=== PATIENT | female | born 1965 | race Caucasian/White ===

== ENCOUNTER 2017-08-22 15:43 | Observation (INO) | payer OTHER ==
[2017-08-22] MEDS ORDERED: ASPIRIN 81 MG PO STA (16:17)
[2017-08-22] MEDS ORDERED: NITROGLYCERIN OINT 1 INCH/GM PACKET TOPICAL STA (16:17)
--- NOTE | 2017-08-22 16:20 | ED ---
General Adult HPI - General Chief complaint: Chest Pain Stated complaint: [facility] sent/ EKG Time Seen by Provider: 08/22/17 16:00 Source: patient, RN notes reviewed Mode of arrival: ambulatory Limitations: no limitations - History of Present Illness Initial comments: This is a 52-year-old female presents emergency Department because she had a five-minute episode last evening of chest pain. Patient states while she had she did have some shortness of breath and some radiation of the pain to the left arm which felt like a heaviness. Patient also states she was having some nausea with the chest pain. Patient denies any recent fever chills or cough. Patient denies headache patient denies numbness weakness. Patient denies any abdominal pain. Patient denies vomiting diarrhea. Patient denies any recent fever chills or cough. Patient states the pain resolved but all night long her left arm felt achy. Patient states currently she is asymptomatic. - Related Data Home Medications Medication Instructions Recorded Confirmed Amoxic-Pot Clav 875-125Mg 1 tab PO Q12HR 08/22/17 08/22/17 [Augmentin 875-125] Allergies Allergy/AdvReac Type Severity Reaction Status Date / Time No Known Allergies Allergy Verified 08/22/17 16:19 Review of Systems ROS Statement: Those systems with pertinent positive or pertinent negative responses have been documented in the HPI. ROS Other: All systems not noted in ROS Statement are negative. Past Medical History Past Medical History: No Reported History History of Any Multi-Drug Resistant Organisms: None Reported Past Surgical History: Hysterectomy Past Psychological History: No Psychological Hx Reported Smoking Status: Former smoker Past Alcohol Use History: None Reported Past Drug Use History: None Reported General Exam - General Exam Comments Initial Comments: GENERAL: Patient is well-developed and well-nourished. Patient is nontoxic and well- hydrated and is in no acute distress ENT: Neck is soft and supple. No significant lymphadenopathy is noted. Oropharynx is clear. Moist mucous membranes. Neck has full range of motion without eliciting any pain. EYES: The sclera were anicteric and conjunctiva were pink and moist. Extraocular movements were intact and pupils were equal round and reactive to light. Eyelids were unremarkable. PULMONARY: Unlabored respirations. Good breath sounds bilaterally. No audible rales rhonchi or wheezing was noted. CARDIOVASCULAR: There is a regular rate and rhythm without any murmurs gallops or rubs. ABDOMEN: Soft and nontender with normal bowel sounds. No palpable organomegaly was noted. There is no palpable pulsatile mass. SKIN: Skin is clear with no lesions or rashes and otherwise unremarkable. NEUROLOGIC: Patient is alert and oriented x3. Cranial nerves II through XII are grossly intact. Motor and sensory are also intact. Normal speech, volume and content. Symmetrical smile. MUSCULOSKELETAL: Normal extremities with adequate strength and full range of motion. No lower extremity swelling or edema. No calf tenderness. LYMPHATICS: No significant lymphadenopathy is noted PSYCHIATRIC: Normal psychiatric evaluation. Normal interpersonal interactions appears functionally intact in deals appropriately with others. No signs of depression. No signs of anxiety. Limitations: no limitations Course Vital Signs 08/22/17 08/22/17 15:59 17:04 Temperature 98.1 F Pulse Rate 70 71 Respiratory 20 16 Rate Blood Pressure 124/87 143/90 O2 Sat by Pulse 98 98 Oximetry Medical Decision Making - Medical Decision Making EKG shows normal sinus rhythm at 70 bpm CA interval is 134 QRS is 72 QT interval 38 QTC is 419. Patient's EKG shows no ST segment elevation or depression or T wave abnormalities are noted. Chest x-ray shows no acute abnormality. I went back in to the room to reevaluate the patient she no longer had any chest pressure but she was still experiencing some left arm heaviness minute the patient to Dr. Real he agreed to accept the admission I wrote admitting orders consult cardiology - Lab Data Result diagrams: 08/22/17 16:24 08/22/17 16:24 Lab Results 08/22/17 08/22/17 08/22/17 Range/Units 16:24 16:24 16:24 WBC 5.7 (3.8-10.6) k/uL RBC 4.49 (3.80-5.40) m/uL Hgb 13.8 (11.4-16.0) gm/dL Hct 42.0 (34.0-46.0) % MCV 93.7 (80.0-100.0) fL MCH 30.8 (25.0-35.0) pg MCHC 32.9 (31.0-37.0) g/dL RDW 12.7 (11.5-15.5) % Plt Count 222 (150-450) k/uL Neutrophils % 49 % Lymphocytes % 43 % Monocytes % 4 % Eosinophils % 2 % Basophils % 0 % Neutrophils # 2.8 (1.3-7.7) k/uL Lymphocytes # 2.5 (1.0-4.8) k/uL Monocytes # 0.2 (0-1.0) k/uL Eosinophils # 0.1 (0-0.7) k/uL Basophils # 0.0 (0-0.2) k/uL PT (9.0-12.0) sec INR (<1.2) APTT (22.0-30.0) sec Sodium 142 (137-145) mmol/L Potassium 4.4 (3.5-5.1) mmol/L Chloride 106 (98-107) mmol/L Carbon Dioxide 25 (22-30) mmol/L Anion Gap 11 mmol/L BUN 14 (7-17) mg/dL Creatinine 0.75 (0.52-1.04) mg/dL Est GFR (MDRD) Af Amer >60 (>60 ml/min/1.73 sqM) Est GFR (MDRD) Non-Af >60 (>60 ml/min/1.73 sqM) Glucose 84 (74-99) mg/dL Calcium 9.7 (8.4-10.2) mg/dL Magnesium 2.0 (1.6-2.3) mg/dL Total Bilirubin 0.6 (0.2-1.3) mg/dL AST 36 (14-36) U/L ALT 35 (9-52) U/L Alkaline Phosphatase 63 (38-126) U/L Total Creatine Kinase 74 (30-135) U/L CK-MB (CK-2) 0.5 (0.0-2.4) ng/mL CK-MB (CK-2) Rel Index 0.7 Troponin I <0.012 (0.000-0.034) ng/mL Total Protein 8.3 H (6.3-8.2) g/dL Albumin 4.8 (3.5-5.0) g/dL 08/22/17 Range/Units 16:24 WBC (3.8-10.6) k/uL RBC (3.80-5.40) m/uL Hgb (11.4-16.0) gm/dL Hct (34.0-46.0) % MCV (80.0-100.0) fL MCH (25.0-35.0) pg MCHC (31.0-37.0) g/dL RDW (11.5-15.5) % Plt Count (150-450) k/uL Neutrophils % % Lymphocytes % % Monocytes % % Eosinophils % % Basophils % % Neutrophils # (1.3-7.7) k/uL Lymphocytes # (1.0-4.8) k/uL Monocytes # (0-1.0) k/uL Eosinophils # (0-0.7) k/uL Basophils # (0-0.2) k/uL PT 9.9 (9.0-12.0) sec INR 1.0 (<1.2) APTT 23.5 (22.0-30.0) sec Sodium (137-145) mmol/L Potassium (3.5-5.1) mmol/L Chloride (98-107) mmol/L Carbon Dioxide (22-30) mmol/L Anion Gap mmol/L BUN (7-17) mg/dL Creatinine (0.52-1.04) mg/dL Est GFR (MDRD) Af Amer (>60 ml/min/1.73 sqM) Est GFR (MDRD) Non-Af (>60 ml/min/1.73 sqM) Glucose (74-99) mg/dL Calcium (8.4-10.2) mg/dL Magnesium (1.6-2.3) mg/dL Total Bilirubin (0.2-1.3) mg/dL AST (14-36) U/L ALT (9-52) U/L Alkaline Phosphatase (38-126) U/L Total Creatine Kinase (30-135) U/L CK-MB (CK-2) (0.0-2.4) ng/mL CK-MB (CK-2) Rel Index Troponin I (0.000-0.034) ng/mL Total Protein (6.3-8.2) g/dL Albumin (3.5-5.0) g/dL Disposition Clinical Impression: Chest pain Disposition: ADMITTED IP TO THIS [facility] Referrals: None,Stated [Primary Care Provider] - 1-2 days Time of Disposition: 17:42
[2017-08-22 16:36] LABS: Basophils % (A) 0 %; CH 31.7; Eosinophils # (A) 0.1 k/uL (0-0.7); Eosinophils % (A) 2 %; HDW 2.65; HGB 13.8 gm/dL (11.4-16.0); Luc # (Auto) 0.09; Luc % (Auto) 2; Lymphocytes # (A) 2.5 k/uL (1.0-4.8); Lymphocytes % (A) 43 %; MCH 30.8 pg (25.0-35.0); MCHC 32.9 g/dL (31.0-37.0); MCV 93.7 fL (80.0-100.0); Mean Platelet Volume 7.1; Monocytes # (A) 0.2 k/uL (0-1.0); Monocytes % (A) 4 %; Neutrophils # (A) 2.8 k/uL (1.3-7.7); Neutrophils % (A) 49 %; RBC 4.49 m/uL (3.80-5.40); RDW 12.7 % (11.5-15.5); WBC 5.7 k/uL (3.8-10.6); WBC (Perox) 5.26
[2017-08-22 16:46] LABS: Partial Thromboplastin Time 23.5 sec (22.0-30.0); Prothrombin Time 9.9 sec (9.0-12.0)
[2017-08-22 16:54] LABS: ALT 35 U/L (9-52); AST 36 U/L (14-36); Alkaline Phosphatase 63 U/L (38-126); Anion Gap 11 mmol/L; Blood Urea Nitrogen 14 mg/dL (7-17); Calcium 9.7 mg/dL (8.4-10.2); Carbon Dioxide 25 mmol/L (22-30); Chloride 106 mmol/L (98-107); Creatine Kinase 74 U/L (30-135); Glucose 84 mg/dL (74-99); Non-African American GFR(MDRD) >60 (>60 ml/min/1.73 sqM); Potassium 4.4 mmol/L (3.5-5.1); Sodium 142 mmol/L (137-145); Total Bilirubin 0.6 mg/dL (0.2-1.3); Total Protein 8.3 g/dL (6.3-8.2)
--- NOTE | 2017-08-22 17:02 | XR ---
EXAMINATION TYPE: XR chest 2V DATE OF EXAM: 08/22/2017 COMPARISON: NONE HISTORY: Chest pain TECHNIQUE: Frontal and lateral views of the chest are obtained. FINDINGS: Heart and mediastinum are normal. Lungs are clear. Diaphragm is normal. Bony thorax appear s normal. There are chest leads. IMPRESSION: Normal chest
[2017-08-22 17:06] LABS: Creatine Kinase MB 0.5 ng/mL (0.0-2.4); Troponin I <0.012 ng/mL (0.000-0.034)
[2017-08-22] MEDS ORDERED: NITROGLYCERIN SL TABS 0.4 MG TAB SUBLINGUAL PRN (17:43)
--- NOTE | 2017-08-22 19:02 | HP ---
HISTORY AND PHYSICAL CHIEF COMPLAINT: 52-year-old, white female, with 5 minute history of chest pain 24 hours ago. She had some shortness of breath, radiation of the pain to the left arm, felt like heaviness, some nausea, denied fever or chills or cough and weakness or abdominal pain. No vomiting or diarrhea. States only along her left arm felt achy. Currently in the ER she was asymptomatic. ALLERGIES: Negative. MEDICATIONS: Home medications are negative except she was on antibiotic for recent cold. REVIEW OF SYSTEM: 14 point review of systems negative except for mentioned in HPI. PAST SURGICAL HISTORY: She has had a hysterectomy. SOCIAL HISTORY: Former smoker. No alcohol. No illicit drugs. PHYSICAL EXAM: Vital signs are reviewed. She is well nourished in no acute distress. NECK: Supple. Ophthalmologic: Pupils equal, round, reactive to light. LUNGS: Unlabored, clear. CARDIOVASCULAR: Regular rate and rhythm. ABDOMEN: Soft, nontender. Skin: No rash, lesions or excoriations. Neurologic: Cranial nerves are intact. She has full strength in all 4 extremities. No lymphadenopathy. Normal psych eval. Pulse 70s, respiration 18-20, temp 98, blood pressure 120s to 140s over 80s to 90s. O2 98% on room air. LABORATORY DATA: Chest x-ray was negative. The thyroid and BNP are pending. Labs essentially normal. ASSESSMENT: Atypical chest pain, due to multiple cardiac type symptoms radiating to the left arm and nausea. She will be admitted, rule out myocardial infarction. Cardiology will be consulted. Possible discharge after Cardiology clears her tomorrow. MMODL / IJN: [id number] /
[2017-08-22 22:42] LABS: Creatine Kinase 64 U/L (30-135)
[2017-08-22 22:57] LABS: Creatine Kinase MB 0.5 ng/mL (0.0-2.4); Troponin I <0.012 ng/mL (0.000-0.034)
[2017-08-23 06:04] LABS: Cholesterol 205 mg/dL (<200); HDL Cholesterol 47 mg/dL (40-60)
[2017-08-23 06:08] LABS: Creatine Kinase 61 U/L (30-135)
[2017-08-23 06:21] LABS: Creatine Kinase MB 0.4 ng/mL (0.0-2.4); Troponin I <0.012 ng/mL (0.000-0.034)
[2017-08-23] MEDS: NITROGLYCERIN OINT 1 INCH/GM PACKET TOPICAL SCH ×2 (06:57→15:54)
[2017-08-23] MEDS ORDERED: ASPIRIN 325 MG TAB PO SCH (09:00)
[2017-08-23 10:15] VITALS: BMI 34.7
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
--- NOTE | 2017-08-23 13:06 | ECHOF ---
Referral Reason:chest pain MEASUREMENTS -------- HEIGHT: 157.5 cm WEIGHT: 86.2 kg BP: 165/85 IVSd: 1.1 cm (0.6 - 1.1) LVIDd: 4.8 cm (3.9 - 5.3) LVPWd: 0.9 cm (0.6 - 1.1) IVSs: 1.4 cm LVIDs: 3.4 cm LVPWs: 1.1 cm LA Diam: 3.2 cm (2.7 - 3.8) LAESV Index (A-L): 20.43 ml/m Ao Diam: 2.8 cm (2.0 - 3.7) AV Cusp: 2.0 cm (1.5 - 2.6) LA Diam: 3.1 cm (2.7 - 3.8) MV EXCURSION: 17.354 mm (> 18.000) MV EF SLOPE: 68 mm/s (70 - 150) EPSS: 0.5 cm MV E Robert: 0.52 m/s MV DecT: 241 ms MV A Robert: 0.58 m/s MV E/A Ratio: 0.90 RAP: 5.00 mmHg RVSP: 23.28 mmHg FINDINGS -------- Sinus rhythm. This was a technically adequate study. The left ventricular size is normal. Left ventricular wall thickness is normal. Overall left ventricular systolic function is normal with, an EF between 55 - 60 %. The right ventricle is normal in size. Normal LA size by volume 22+/-6 ml/m2. The right atrial size is normal. The aortic valve is trileaflet, and appears structurally normal. No aortic stenosis or regurgitation. Mild mitral regurgitation is present. Mild tricuspid regurgitation present. There is no evidence of pulmonary hypertension. The right ventricular systolic pressure, as measured by Doppler, is 23.28mmHg. There is no pulmonic regurgitation present. The aortic root size is normal. There is no pericardial effusion. CONCLUSIONS -------- 1. The left ventricular size is normal. 2. The aortic root size is normal. 3. There is no pericardial effusion. 4. Left ventricular wall thickness is normal. 5. Overall left ventricular systolic function is normal with, an EF between 55 - 60 %. 6. The aortic valve is trileaflet, and appears structurally normal. No aortic stenosis or regurgitation. 7. Mild mitral regurgitation is present. 8. Mild tricuspid regurgitation present. 9. There is no evidence of pulmonary hypertension. 10. The right ventricular systolic pressure, as measured by Doppler, is 23.28mmHg. 11. There is no pulmonic regurgitation present. CURB WORKER: Valencia Donahue RDCS
--- NOTE | 2017-08-23 14:21 | ECHOS ---
STRESS ECHOCARDIOGRAM DATE OF SERVICE: 08/23/2017 INDICATIONS: Chest pain. MEDICATIONS:: Augmentin BASELINE HEART RATE: 86 BASELINE BLOOD PRESSURE: 140/100 MAXIMUM HEART RATE: 174 MAXIMUM BLOOD PRESSURE: 190/108 85% MPHR: 145 100% MPHR: 170 METS: 7.7 MAXIMUM STAGE REACHED: II TOTAL EXERCISE TIME: 6:31 CLINICAL INFORMATION: Pretesting physical examination showed a heart rate of 86, pressure of 140/100 mmHg. Baseline EKG shows sinus mechanism. The patient exercised on the treadmill according to Huang protocol for a total of 6 minutes and 31 seconds and achieved 8 of METs. Max heart rate was 174, which is about 100% of maximum predicted heart rate. Maximum blood pressure was 190/100 mmHg. Clinically, the patient did not have any symptoms of chest pain or discomfort and the EKG showed about 0.[address]-segment changes. On echocardiogram images from parasternal long axis view, parasternal short axis view, apical 4 chamber view, and the apical 2 chamber view were obtained as the baseline images, at peak heart rate, as well as on recovery. The echocardiogram images did not show any obvious wall motion abnormalities consistent with ischemia. CONCLUSION: 1. Mild EKG changes and response to exercise did not meet the criteria for ischemia. 2. Normal echocardiogram in response to exercise. MMODL / IJN: [id number] /
[2017-08-23 15:48] VITALS: BP 143/85; PULSE 71; RESP 18; TEMP 97.7
== END 2017-08-23 18:02 | disposition home or self-care (01) ==
LOC: EC 15:43 → 3OBS 17:43
PROVIDERS: ADMIT Family Medicine; ATTEND Family Medicine
DX: R07.89 Other chest pain (principal); R11.0 Nausea; R06.02 Shortness of breath; M19.90 Unspecified osteoarthritis, unspecified site; F32.9 Major depressive disorder, single episode, unspecified; Z87.891 Personal history of nicotine dependence; Z87.820 Personal history of traumatic brain injury
CPT/HCPCS: 99285 ×2; 36415; 93005; 93017; 93306; 93350; 85379; 80061; 80053; 84443; 82550 ×2; 82553 ×2; 83735; 84484 ×2; 85025; 85610; 85730; 71020; G0378 ×2

== ENCOUNTER → 2017-12-07 | Outpatient (CLI) | payer OTHER ==
--- NOTE | 2017-12-07 13:26 | US ---
EXAMINATION TYPE: US abdomen complete DATE OF EXAM: 12/07/2017 COMPARISON: NONE CLINICAL HISTORY: R10.9 Intermittent Abdominal Pain. epigastric pain EXAM MEASUREMENTS: Liver Length: 12.9 cm Gallbladder Wall: 0.2 cm CBD: 0.5 cm Spleen: 10.4 cm Right Kidney: 9.9 x 3.9 x 5.4 cm Left Kidney: 10.7 x 4.7 x 5.4 cm Pancreas: not well visualized due to midline bowel gas Liver: difficult to penetrate, somewhat coarse echotexture. Gallbladder: No stones seen Evidence for sonographic Betancourt's sign: No CBD: wnl Spleen: wnl Right Kidney: limited vis due to bowel gas Left Kidney: limited vis due to bowel gas Upper IVC: wnl Abd Aorta: wnl IMPRESSION: 1. Limited examination due to bowel gas. 2. Mild fatty infiltration of the liver.
--- NOTE | 2017-12-07 13:27 | US ---
EXAMINATION TYPE: US pelvis complete transvag DATE OF EXAM: 12/07/2017 COMPARISON: US CLINICAL HISTORY: R10.9 Intermittent Abdominal Pain/R10.2 PELVIC PAIN. TECHNIQUE: Transvaginal (TV) and Transabdominal (TA) Date of LMP: hysterectomy 2010 per patient and prior US EXAM MEASUREMENTS: Uterus: Surgically absent cm Endometrial Stripe: Surgically absent cm Right Ovary: not visualized due to bowel gas Left Ovary: 2.2 x 0.9 x 2.8 cm Appears as if patient still has cervix. 1. Uterus: Surgically absent 2. Endometrium: Surgically absent 3. Right Ovary: not visualized 4. Left Ovary: wnl 5. Bilateral Adnexa: wnl 6. Posterior cul-de-sac: wnl IMPRESSION: 1. Postsurgical changes. 2. No acute pelvic abnormality.
--- NOTE | 2017-12-10 08:17 | MM ---
Reason for exam: clinical finding. Last mammogram was performed 3 years and 2 months ago. Physical Findings: Nurse Summary: 1.5cm nodule in the right breast at 11 o'clock (nurse sunil). MG Diagnostic Mammo w CAD CHANDRA Bilateral CC and MLO view(s) were taken. Prior study comparison: September 21, 2014, bilateral MG screening mammo w CAD. December 14, 2009, mammogram, performed at [facility]. The breast tissue is almost entirely fat. No significant new findings when compared with previous films. These results were verbally communicated with the patient and result sheet given to the patient on 12/07/17. ASSESSMENT: Negative, BI-RAD 1 RECOMMENDATION: Routine screening mammogram of both breasts in 1 year. Manage on a clinical basis with regard to right palpable.
--- NOTE | 2017-12-10 08:18 | USB ---
Reason for exam: clinical finding. US Breast RT Right breast ultrasound includes all four quadrants, the retroareolar region and axilla. Finding demonstrates no cystic or solid lesion seen. These results were verbally communicated with the patient and result sheet given to the patient on 12/07/17. ASSESSMENT: Negative, BI-RAD 1 RECOMMENDATION: Routine screening mammogram of both breasts in 1 year. Manage on a clinical basis with regard to right palpable abnormality.
== END | disposition home or self-care (01) ==
LOC: RADUSWWP 12:14
PROVIDERS: ATTEND Family Medicine
DX: K76.0 Fatty (change of) liver, not elsewhere classified (principal); R10.2 Pelvic and perineal pain; N63.10 Unspecified lump in the right breast, unspecified quadrant; Z98.890 Other specified postprocedural states
CPT/HCPCS: 76700; 76830; 76856; 77066

== ENCOUNTER 2017-12-25 21:05 | Emergency (ER) | payer OTHER ==
[2017-12-25 21:10] VITALS: BP 145/88; PULSE 94; RESP 20; TEMP 98.6
--- NOTE | 2017-12-25 21:42 | XR ---
EXAMINATION TYPE: XR chest 2V DATE OF EXAM: 12/25/2017 COMPARISON: 08/22/2017 HISTORY: Chest pain TECHNIQUE: Frontal and lateral views of the chest are obtained. FINDINGS: Heart and mediastinum are normal. Lungs are clear of infiltrate. Costophrenic angles are c lear. Bony thorax is intact. IMPRESSION: No active cardiopulmonary disease. No change.
[2017-12-25] MEDS ORDERED: predniSONE 20 MG TAB PO STA (21:58)
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
== END 2017-12-25 22:11 | disposition home or self-care (01) ==
LOC: EC 21:05
DX: J20.8 Acute bronchitis due to other specified organisms (principal); Z87.891 Personal history of nicotine dependence
CPT/HCPCS: 71046; 99283; J7512

== ENCOUNTER → 2021-10-15 | Outpatient (CLI) | payer OTHER ==
--- NOTE | 2021-10-15 13:31 | XR ---
Left fourth toe. HISTORY: Pain following trauma. COMPARISON: None. TECHNIQUE: 3 views of the left fourth toe were obtained. FINDINGS: There is a mildly displaced acute spiral fracture of the proximal phalanx of the left fourth toe. Sepulveda s not appear to involve the articular surfaces. There is no radiopaque foreign body. IMPRESSION: Fracture of the left fourth toe as described above.
== END | disposition home or self-care (01) ==
LOC: RADXRMAIN 12:51
PROVIDERS: ATTEND Family Medicine
DX: S92.512A Displaced fracture of proximal phalanx of left lesser toe(s), initial encounter for closed fracture (principal)

== ENCOUNTER → 2022-06-01 | Outpatient (CLI) | payer OTHER ==
--- NOTE | 2022-06-01 15:07 | XR ---
EXAMINATION TYPE: XR lumbar spine 2 or 3V DATE OF EXAM: 06/01/2022 CLINICAL HISTORY: pain TECHNIQUE: Frontal, lateral, and coned and L5-S1 views of the lumbar spine. COMPARISON: None. FINDINGS: There are 5 lumbar type vertebral bodies identified. The lumbar spine shows satisfactory alignment w ithout evidence of acute fracture or dislocation. Vertebral body heights are within normal limits. Disc spaces are mildly narrowed with endplate sclerosis and anterior asbestosis. This is most promine nt at L5-S1 and L2-L3. Multilevel facet arthropathy. The overlying soft tissue appears unremarkable. IMPRESSION: * No acute fracture seen in the lumbar spine. * Mild degenerative disc disease.
== END | disposition home or self-care (01) ==
LOC: RADXRMAIN 14:36
PROVIDERS: ATTEND Family Medicine
DX: M51.26 Other intervertebral disc displacement, lumbar region (principal); R93.7 Abnormal findings on diagnostic imaging of other parts of musculoskeletal system
CPT/HCPCS: 72100

== ENCOUNTER → 2022-06-10 | Outpatient (CLI) | payer OTHER ==
--- NOTE | 2022-06-11 04:03 | MR ---
EXAMINATION TYPE: MR lumbar spine wo con DATE OF EXAM: 06/10/2022 COMPARISON: March 30, 2014 HISTORY: Lower back pain in the center and right side. Multiplanar multiecho imaging of the lumbar spine with no contrast. The lumbar vertebra have normal alignment. There is degenerative disc space narrowing at L2-3 and L3- 4. There is posterior disc herniations at L2-3 and L3-4 into the spinal canal. No significant spinal stenosis. There is no lumbar paraspinal mass. No compression fracture. Posterior elements are intact. There is left-sided narrowing of the L3-4 and L4-5 neural foramina due to disc space narrowing and f acet arthropathy. There is mild narrowing of the right-sided L4-5 neural foramen. IMPRESSION: Posterior disc herniations at L2-3 and L3-4. Disc herniation at L3-4 appears new compared to old exam . No change at L2-3.. No significant spinal stenosis.
== END | disposition home or self-care (01) ==
LOC: RADMRIMAIN 09:54
PROVIDERS: ATTEND Family Medicine
DX: M51.26 Other intervertebral disc displacement, lumbar region (principal)
CPT/HCPCS: 72148

== ENCOUNTER → 2023-08-02 | Outpatient (CLI) | payer OTHER ==
--- NOTE | 2023-08-02 15:58 | XR ---
EXAMINATION TYPE: XR sacroiliac joint comp BILAT DATE OF EXAM: 08/02/2023 COMPARISON: Lumbar spine 06/01/2022 HISTORY: 58-year-old female M79.18 MYALGIA, OTHER SITE TECHNIQUE: 3 views FINDINGS: SI joints appear symmetric and intact. Possible mild degenerative spurring on the right but no subarticular erosions. Suspected transitional lumbosacral segment with a lumbarized S1. Suboptima l delineation to the arcuate lines of the sacrum. IMPRESSION: 1. Suggestion of mild degenerative change of the right SI joint. 2. Transitional lumbosacral segment is noted as a lumbarized S1.
== END | disposition home or self-care (01) ==
LOC: RADXRMAIN 11:19
PROVIDERS: ATTEND Internal Medicine
DX: M79.18 Myalgia, other site (principal)
CPT/HCPCS: 72202

== ENCOUNTER → 2023-09-22 | Outpatient (CLI) | payer OTHER ==
--- NOTE | 2023-09-26 09:31 | MR ---
EXAMINATION TYPE: MR lumbar spine wo con DATE OF EXAM: 09/22/2023 COMPARISON: 06/10/2022 HISTORY: Low back pain that radiates into left buttocks. TECHNIQUE: Multiplanar, multisequence images of the lumbar spine were acquired without IV contrast. L1-L2: Normal disc appearance without desiccation. No herniation, protrusion or disc bulging. No ca nal stenosis is present. Foramina are patent bilaterally. L2-L3: Severe disc desiccation with subligamentous disc herniation. Mild effacement ventral thecal sa c. No evidence for central stenosis. There is evidence of left lateral recess stenosis and left heremlinda inal encroachment. Overall appearance is stable relative to the prior study. L3-L4: Severe disc desiccation with subligamentous herniation posterocentral into the right measuring 5 mm in AP dimension. There is constriction of the thecal sac with borderline central stenosis. Ther e is right lateral recess stenosis and right foraminal encroachment unchanged from prior study. L4-L5: Moderate disc desiccation with posterocentral disc bulge. Mild effacement ventral thecal sac. Right lateral recess stenosis and right foraminal encroachment. L5-S1: Normal disc appearance without desiccation. No herniation, protrusion or disc bulging. No ca nal stenosis is present. Foramina are patent bilaterally. Lumbar segments are intact. No paraspinal masses are identified. Conus medullaris has a normal appe arance. IMPRESSION: 1. Stable examination with disc desiccation as well as disc herniation at L3-4 and to a lesser extent L2-3. Varying degrees of lateral recess stenosis and foraminal encroachment as outlined above.
== END | disposition home or self-care (01) ==
LOC: RADMRIMAIN 09:06
PROVIDERS: ATTEND Orthopaedic Surgery
DX: M51.16 Intervertebral disc disorders with radiculopathy, lumbar region (principal); M48.061 Spinal stenosis, lumbar region without neurogenic claudication
CPT/HCPCS: 72148

== ENCOUNTER → 2023-10-26 | Outpatient (CLI) | payer OTHER ==
--- NOTE | 2023-10-26 16:30 | CT ---
EXAMINATION TYPE: CT lumbar spine wo con DATE OF EXAM: 10/26/2023 3:26 PM COMPARISON: None HISTORY: chronic lower back and leg pain. CT DLP: 1034.1 mGycm Automated exposure control for dose reduction was used. Unenhanced CT of the lumbar spine was performed. Bone and soft tissue window settings are submitted as well as coronal and sagittal reconstructions. Findings: The lumbar vertebral segments are normal in height and alignment and there is no fracture subluxation . There is moderate to marked disc space narrowing with vacuum phenomena and spondylosis at the L2-3 and L3-4 levels consistent with moderate to marked degenerative disc disease. The L1-2, L4-5 and L5-S 1 discs are well-maintained in height There is a broad-based disc protrusion at the L4-5 disc to the right of midline compromising the righ t lateral recess. On the MRI dated 09/22/2023 a central disc protrusion/herniation is identified at t he L3-4 level which is not well appreciated on the current study. Secondary to disc bulge, facet hypertrophy and thickening ligamentum flavum, there is probable mild s carlene stenosis at the L2-3, L3-4 and L4-5 levels.. There is mild facet arthropathy in the mid and lower lumbar spine. The visualized sacrum and SI joint s are normal. The paraspinal soft tissues are unremarkable. IMPRESSION: 1. Moderate to marked degenerative disease at the L2-3 and L3-4 levels. 2. Broad-based disc protrusion the L4-5 disc on the right compromising the right lateral recess. 3. Mild spinal stenosis suspected at the L2-3, L3-4 and L4-5 levels. 4. Correlation with MRI lumbar spine findings is recommended. MRI lumbar spine 09/22/2023 also demons trated a focal disc protrusion/herniation of the L3-4 disc which is not well appreciated on the curre nt study.
== END | disposition home or self-care (01) ==
LOC: RADCTMAIN 15:10
PROVIDERS: ATTEND Orthopaedic Surgery
DX: M47.817 Spondylosis without myelopathy or radiculopathy, lumbosacral region (principal); M51.36 Other intervertebral disc degeneration, lumbar region; M51.26 Other intervertebral disc displacement, lumbar region; M48.061 Spinal stenosis, lumbar region without neurogenic claudication
CPT/HCPCS: 72131

== ENCOUNTER → 2024-02-16 | Outpatient (CLI) | payer OTHER | END | disposition home or self-care (01) | LOC: LABPAT 11:43 | PROVIDERS: ATTEND Orthopaedic Surgery | DX: Z01.812 Encounter for preprocedural laboratory examination (principal); Z22.322 Carrier or suspected carrier of Methicillin resistant Staphylococcus aureus; M47.26 Other spondylosis with radiculopathy, lumbar region; M48.061 Spinal stenosis, lumbar region without neurogenic claudication | CPT/HCPCS: 36415; 86850; 86900; 86901; 87070 ==

== ENCOUNTER 2024-02-19 08:27 | Inpatient (IN) | payer OTHER ==
--- NOTE | 2024-02-17 18:54 | P.HPOR ---
History of Present Illness H&P Date: 02/11/24 .D:Date: 02/11/24 : 03:25pm .T:Title: *[facility] [place] HISTORY AND PHYSICAL Allergies: NKDA Age: 58 year Height: 5'2" Weight: 190 lbs BMI: 34.75 kg/m2 Occupation: [employer] VAS: 2 Hand:Right IMPRESSION: It was my pleasure to have seen and examined Alyse. I reviewed the patient's clinical syndrome, physical findings, and imaging studies during the appointment today. It is my impression that the patient has a diagnosis of. 1. 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 Bilateral lower extremity radiculopathy 3. Bilateral lower extremity weakness I outlined the natural course history without intervention and various interventional options. Spine Surgery Risk Review Ms. Mata is presenting for evaluation of low back and bilateral lower extremity pain, bilateral lower extremity numbness, tingling, and weakness. It was my pleasure to have seen and examined Ms. Mata. In our visit today we have had a chance to go over subjective complaints, physical examination findings and treatments including the natural course history without intervention and various interventional options. The patients imaging demonstrates: [facility]: Images reviewed in the office with the patient. This demonstrates L2 through L3 4 severe spondylosis with disc collapse. Vacuum disc phenomenon noted. Facet arthrosis. Stenosis related to disc herniation facet arthrosis overgrowth and arthropathy. Flat normal lumbar lordosis secondary to this collapse. No acute fracture no lesions. [facility]23 of [facility]: - Re-reviewed with the patient today. 1. Stable examination with disc desiccation as well as disc herniation at L3-4 and to a lesser extent L2-3. Varying degrees of lateral recess stenosis and foraminal encroachment as outlined above. XRay Lumbar Multiview (AP, Lateral, Flexion, Extension) with AP pelvis; 5 views taken at [facility] on 09/17/23: - Re-reviewed with the patient today. Moderate multilevel spondylitic and degenerative changes with preserved alignment. Multilevel diminished disc height. Vertebral body heights are preserved. Multilevel foraminal stenosis. No acute osseous abnormalities. On physical exam, Ms. Mata demonstrates: A continued ache-like pain throughout the low back that radiates down into the bilateral lower extremities with a sharp, shooting quality. The patient states that her left lower extremity pain is much more severe than the right at this time. The patient states her lower extremity pain is associated with numbness, tingling, and weakness bilaterally. She states her symptoms worsen when sitting upon juan luis surfaces or after prolonged standing or walking. The patient reports experiencing severe sleep disturbances related to her ongoing pain and associated symptoms. I have explained to the patient that as their condition progresses it will cause further neurological deficits and eventual paralysis. Based on the patients imaging, physical exam, and the rapid progression and disabling nature of their symptoms, at this time I recommend surgery in the form of a: Stage I: L2-4 lateral interbody fusion followed by Stage II: L2-4 MIS posterior fusion. I discussed the risk and benefits of this procedure at length with Ms. Mata. The patient agreed to considered pursuing the procedure above mentioned. Prior to surgery, she should follow up with her PCP (Cardio, ID, IM etc) for clearance. Questions were invited and answered, and the patient wishes to proceed as outlined below. Currently, I am recommendin.Stage I: L2-4 lateral interbody fusion followed by Stage II: L2-4 MIS posterior fusion 2.Review of surgical risks and benefits as well as an educational packet on the proposed surgical procedure. Risks: All surgical procedures come with inherent risks, including those related to positioning, anesthesia, intraoperative findings, and postoperative complications. It is important to understand that surgery does not come with any guarantee of a successful outcome as complications and adverse events are always possible. The patient was given a handout in office today discussing the surgical procedure and risks associated with the intervention, both of which were discussed with the patient. These risks include but are not limited to the following: * Experiencing same, different or even worse symptoms in back, neck, arms, or legs compared to before surgery. Requiring further surgery or other forms of treatment presently or at some time in the future at same or other levels of the intended spine surgery. On an extreme but fortunately relatively rare basis severe complication such as blindness, stroke, heart attack, temporary and/or permanent nerve injury, paralysis, coma, or may occur, sometimes without known explanation. Surgical complications may include but are not limited to risk of infection, fluid accumulation in the surgical dissection site, including a seroma or hematoma, that requires additional surgery, wound drainage, bleeding, new numbness or weakness, vision changes/loss, spinal fluid leakage, non-healing and/or infected incision, headaches, difficulty or inability to swallow, hoarseness, hemopneumothorax, pneumothorax, impotence, retrograde ejaculation, vaginal dryness; injury to nerves, spinal cord, blood vessels, lymphatics or other vital organs (i.e., bowel injury, injury to the great vessels); heterotopic bone formation; complications related to the hardware such as screws, rods, cages including misplaced hardware, device failure, instrumentation at the wrong spine level, hardware fracture/breakage, or hardware loosening; vertebral failure of the spinal column above or below the newly placed hardware; retained surgical instrumentations or devices and the need for further surgery. * Medical risks of the planned spine surgery include but are not limited to generalized Infections to the whole body or local areas outside of the surgical site (sepsis), heart attack, bleeding, anaphylaxis, meningitis, seizure, epilepsy, hearing loss, burn aquino, laceration of the head or other areas of the body, bruising, hypersensitivity of the skin, bladder over distension; allergic reaction; shoulder injury related to positioning; fat, blood and air clots to other areas of the body like heart, lungs, brain; failure of internal organs such as lungs, kidneys, liver and excessive bleeding. If blood transfusions are necessary, note that transfusions may cause intolerance reactions such as anaphylaxis or other complex reactions. Despite best efforts, the results of spine surgery might not heal in terms of bone, soft tissues such as skin, fascia, ligaments, and joints. Additionally, in order to achieve best possible results, spine surgery may be carried out beyond the initially planned levels and involve decompression, fusion including insertion of hardware at levels other than the original intended area of surgical interest change some portions of the procedure in order to ensure the best possible outcomes. With spine surgery and spinal fusion, there are different off label uses of instrumentation (devices, implants and hardware) as well as biological substances (bone morphogenic proteins, demineralized bone matrix) as well as using extra bone from allograft sources (i.e. cadaver bone) or autograft (iliac crest bone, ribs, or the spine itself). The patient has been given information about these practices and their inherent risks and benefits. [facility] is an educational center that serves as a training facility for neurosurgical and orthopedic [employer] and Nursing students. Physician assistants are medically trained surgical providers who function in the outpatient, inpatient, and operating room setting under the direct supervision of the attending surgeon. [facility] has multiple operating rooms with single and overlapping rooms running daily. They currently function under the required guidelines as produced by the [facility] Finance Committee with regards to the overlapping rooms and will continue to comply with changes to this policy as they occur. The requirements include and are complied with as follows: (1) the critical portions of the overlapping rooms will not occur at the same time, (2) the attending physician will be physically present during the critical portions of the procedure and immediately available during the entire case, and (3) a back-up attending is designated should the primary attending not be immediately available. The patient has had a chance to review all the listed information, has been given print outs detailing this information, and has had all his/her questions answered to their satisfaction. It was my pleasure to have seen and examined Ms. Mata. In our visit today we have had a chance to go over my understanding of our patient's current condition, the natural course history without intervention and various interventional options. Questions were invited and answered, and the patient wishes to proceed as outlined above. I have seen and examined the patient for 25 minutes and we have spent more than 50% of the time in repeat and detailed counseling about the patient's condition, its natural course history with out and as much as can be predicted with surgery and re-review of various surgical treatment options. In conclusion, Ms. Mata requested we proceed with the above suggested surgery and are willing to accept risks and limitations of the suggested surgery as nature of the disease process and our best attempts at treatment for the condition. Thank you again for allowing us to be part of your patient's care. Please don't hesitate to contact me if you have any further questions. FOLLOW UP: Post Procedure PATIENT EDUCATION: Medications Reviewed: YES In our visit today Ms. Mata and I have had a chance to go over my understanding of the patient's current condition, the natural course history without intervention and various interventional options. Questions were invited and answered, and the patient wishes to proceed as outlined above. I will be sure to keep you updated after Ms. Mata returns here for further follow-up. Thank you again for your referral. Please do not hesitate to contact me if you have any further questions. Signed and authenticated by: Te Erickson [facility] [address] [place] [address] This message is confidential, intended only for the named recipient(s) and may contain information that is privileged or exempt from disclosure under applicable law. If you are not the intended recipient(s), you are notified that the dissemination, distribution or copying of this information is strictly prohibited. If you received this message in error, please notify the sender then delete this message. Past Medical History Past Medical History: GERD/Reflux, Hyperlipidemia, Osteoarthritis (OA) Additional Past Medical History / Comment(s): ddd-lumbar, covid in 2019-thinks still has post covid cough History of Any Multi-Drug Resistant Organisms: None Reported Past Surgical History: Hysterectomy Past Anesthesia/Blood Transfusion Reactions: No Reported Reaction Smoking Status: Former smoker - Past Family History Mother Family Medical History: Hypertension, Osteoarthritis (OA) Father Family Medical History: Osteoarthritis (OA) Medications and Allergies Home Medications Medication Instructions Recorded Confirmed Type Albuterol Sulfate [Proair Hfa] 1 - 2 puff INHALATION Q6HR PRN #1 12/25/17 02/15/24 Rx inhaler Atorvastatin [Lipitor] 20 mg PO DAILY 02/15/24 02/15/24 History Omeprazole 20 mg PO DAILY 02/15/24 02/15/24 History Allergies Allergy/AdvReac Type Severity Reaction Status Date / Time No Known Allergies Allergy Verified 02/15/24 15:19 Physical Examination Osteopathic Statement: *. No significant issues noted on an osteopathic structural exam other than those noted in the History and Physical/Consult.
[~2024-02-19 08:27] MED LIST: LIDOCAINE 1% (10MG/ML) FOR IV START INTRADERMA PRN; TRANEXAMIC 1,000 MG/100ML-NACL 1,000 MG in SALINE 1 100ML.BAG IVPB PRN
[2024-02-19] MEDS: GABAPENTIN 300 MG CAP PO PRN (09:14)
[2024-02-19] MEDS: ACETAMINOPHEN TAB 500 MG TAB PO PRN (09:14)
[2024-02-19] MEDS: LACTATED RINGERS 1,000 ML IV SCH (09:20)
[2024-02-19] MEDS: LIDOCAINE 1% (10MG/ML) FOR IV START INTRADERMA ONE ×2 (09:20→09:35)
[2024-02-19] MEDS: MIDAZOLAM 2 MG/2 ML VIAL IV PRN (09:35)
[2024-02-19] MEDS: ONDANSETRON 4 MG/2 ML VIAL IVP PRN ×2 (09:35→20:30)
[2024-02-19] MEDS: DEXAMETHASONE SOD PHOSPHATE 4 MG/ML 1 ML VIAL IVP ONE (09:35)
[2024-02-19] MEDS ORDERED: LIDOCAINE 1% INJ 10MG/ML (20 ML MDV) ONE (10:32)
[2024-02-19] MEDS ORDERED: fentaNYL (PF) 50 MCG/ML 2 ML AMP ONE (10:32)
[2024-02-19] MEDS ORDERED: MIDAZOLAM 2 MG/2 ML VIAL ONE (10:32)
[2024-02-19] MEDS ORDERED: HYDROmorphone (PF) 1 MG/ML ONE (10:32)
[2024-02-19] MEDS ORDERED: ROCURONIUM 10 MG/ML (5 ML VIAL) IV ONE (10:32)
[2024-02-19] MEDS ORDERED: TRANEXAMIC 1,000 MG/100ML-NACL PREMIX BAG ONE (10:32)
[2024-02-19] MEDS ORDERED: NEOSTIGMINE 1 MG/ML 10 ML VIAL ONE (10:32)
[2024-02-19] MEDS ORDERED: SUCCINYLCHOLINE CHLORIDE 200 MG/10 ML VIAL IV ONE (10:32)
[2024-02-19] MEDS ORDERED: PROPOFOL 10 MG/ML 20 ML VIAL IV ONE (10:32)
[2024-02-19] MEDS ORDERED: GLYCOPYRROLATE 0.2 MG/ML 2 ML VIAL ONE (10:32)
[2024-02-19] MEDS ORDERED: KETAMINE HCL IN 0.9 % NACL 50 MG/5 ML SYRINGE ONE (10:32)
[2024-02-19] MEDS: THROMBIN (BOVINE) 5,000 UNIT VIAL TOPICAL ONE (10:37)
[2024-02-19] MEDS: LIDOCAINE 1%-EPI 1:100,000 20 ML VIAL SQ ONE ×2 (12:41)
[2024-02-19] MEDS: BUPIVACAINE (PF) 0.5% 30 ML VIAL SQ ONE (12:41)
[2024-02-19] MEDS: LACTATED RINGERS 1,000 ML IV ONE (14:00)
[2024-02-19] MEDS ORDERED: MAGNESIUM HYDROXIDE 2,400 MG/30 ML CUP PO PRN (14:52)
[2024-02-19] MEDS ORDERED: bisacodyL 10 MG SUPP RECTAL PRN (14:52)
--- NOTE | 2024-02-19 15:00 | P.OP ---
Date of Procedure: 02/19/24 Preoperative Diagnosis: 1. L2-3 SPONDYLOSIS WITH STENOSIS 2. L3-4 SPONDYLOSIS WITH STENOSIS 3. LUMBAR RADICULOPATHY 4. LE WEAKNESS 5. LOW BACK PAIN Postoperative Diagnosis: 1. L2-3 SPONDYLOSIS WITH STENOSIS 2. L3-4 SPONDYLOSIS WITH STENOSIS 3. LUMBAR RADICULOPATHY 4. LE WEAKNESS 5. LOW BACK PAIN Procedure(s) Performed: STAGE I: 1. L2-3 LATERAL INTERBODY ARTHRODESIS 2. L3-4 LATERAL INTERBODY ARTHRODESIS 3. L2-3 AND L3-4 INSERTION OF BIOMECHANICAL DEVICE x2 STAGE II: 1. L2-4 POSTEROLATERAL INSTRUMENTED FUSION 2. L2-4 SEGMENTAL INSTRUMENTATION 3. USE OF Food Reporter NAVIGATION FOR SCREW PLACEMENT USE OF IONM Implants: -GLOBUS RISE L CAGE 18MM 10-17MM 10 DEG x2 55MM -ARTHROCELL, AUTOGRAFT, VENTRIS -KISHOR EVEREST SCREWS AND RODS -MAGNATOS, AUTOGRAFT Anesthesia: TONIA Surgeon: Te Bruno Speed Belt Sander #1: Kasisdy Mukherjee (WAS PRESENT AND ASSISTED WITH ALL ASPECTS OF THE CASE FROM POSITION TO CLOSURE) Estimated Blood Loss (ml): 175 IV fluids (ml): 1,250 Urine output (ml): 450 Pathology: none sent Condition: stable Disposition: PACU Indications for Procedure: Ms. Mata is presenting for evaluation of low back and bilateral lower extremity pain, bilateral lower extremity numbness, tingling, and weakness. It was my pleasure to have seen and examined Ms. Mata. In our visit today we have had a chance to go over subjective complaints, physical examination findings and treatments including the natural course history without intervention and various interventional options. The patients imaging demonstrates: [facility] of [facility]: Images reviewed in the office with the patient. This demonstrates L2 through L3 4 severe spondylosis with disc collapse. Vacuum disc phenomenon noted. Facet arthrosis. Stenosis related to disc herniation facet arthrosis overgrowth and arthropathy. Flat normal lumbar lordosis secondary to this collapse. No acute fracture no lesions. MRI [facility]completed [facility] from09/22/23 of [facility]: - Re-reviewed with the patient today. 1. Stable examination with disc desiccation as well as disc herniation at L3-4 and to a lesser extent L2-3. Varying degrees of lateral recess stenosis and foraminal encroachment as outlined above. XRay Lumbar Multiview (AP, Lateral, Flexion, Extension) with AP pelvis; 5 views taken at [facility] on 09/17/23: - Re-reviewed with the patient today. Moderate multilevel spondylitic and degenerative changes with preserved alignment. Multilevel diminished disc height. Vertebral body heights are preserved. Multilevel foraminal stenosis. No acute osseous abnormalities. On physical exam, Ms. Mata demonstrates: A continued ache-like pain throughout the low back that radiates down into the bilateral lower extremities with a sharp, shooting quality. The patient states that her left lower extremity pain is much more severe than the right at this time. The patient states her lower extremity pain is associated with numbness, tingling, and weakness bilaterally. She states her symptoms worsen when sitting upon juan luis surfaces or after prolonged standing or walking. The patient reports experiencing severe sleep disturbances related to her ongoing pain and associated symptoms. I have explained to the patient that as their condition progresses it will cause further neurological deficits and eventual paralysis. Based on the patients imaging, physical exam, and the rapid progression and disabling nature of their symptoms, at this time I recommend surgery in the form of a: Stage I: L2-4 lateral interbody fusion followed by Stage II: L2-4 MIS posterior fusion. I discussed the risk and benefits of this procedure at length with Ms. Mata. The patient agreed to considered pursuing the procedure above mentioned. Prior to surgery, she should follow up with her PCP (Cardio, ID, IM etc) for clearance. Questions were invited and answered, and the patient wishes to proceed as outlined below. Currently, I am recommendin.Stage I: L2-4 lateral interbody fusion followed by Stage II: L2-4 MIS posterior fusion Description of Procedure: L2-4 lateral interbody fusion with posterolateral instrumented fusion (ANTONY) The patient was seen and examined in the preoperative area. All preoperative protocols were followed. Informed consent was obtained, risks and benefits of the procedure were discussed at length. Risks including bleeding infection damage to the surrounding tissue and risk of reoperation were discussed with the patient. Risk of anesthesia up to and including was discussed with the patient. These are outlined in the risk review. They were willing to accept these risks and all of the risks of surgery. The patient was given a weight- based dose of antibiotics in the form of 2 g Ancef. The patient was seen and evaluated by the anesthesia team who deemed them fit for surgery. The site was marked, the patient was willing to proceed with the procedure. The patient was transferred to the operative suite by the Department of anesthesia. They were then drifted off to sleep by the department anesthesia and GETA was performed. The patient tolerated this well. León catheter was placed by nursing staff, atraumatically. Once confirmation of lines and ventilation the patient was transferred to a flat Jose table and placed in the right lateral decubitus position. Axillary roll was placed. Hip Bump was placed. All bony prominences including wrists, elbows, axilla, chest, hips, and thighs, and feet were padded very well. Special attention was paid to the genitalia and these were padded accordingly. SCDs were placed on bilateral lower extremities and were connected. Arms were well padded and placed on armboard pillows. The patient was taped to the table and secured. Once in position, again we confirmed good ventilation capabilities and that lines were running appropriately. The patient's left lateral lumbar and flank was then exposed. 1010s were placed outlining the incision site. Standard alcohol was used to clean the incision site and allowed to dry. C-arm was used to biomark the patient and confirm level for incision which was marked with a skin marker. Operative briefing was performed with all teams and everyone in agreement to proceed. The patient was then prepped and draped in a normal sterile fashion. Timeout was then performed and all parties were in agreement with the procedure to be performed. Transverse skin incision was then made over the previously biomarker area and dissection taken down with EC to the external oblique fascia. This was then identified and two large tatyana clamps then used for blunt dissection through the external, internal and transverse abdominis inline with the level to be exposed. Once the transversalis fascia was identified the retroperitoneal space was entered bluntly and blunt dissection was used to sweep abdominal contents anteriorly. Retroperitoneal fat was identified and the psoas as well as TVP was palpated. Once this was identified a blunt probe was placed with the help of biplanar fluoroscopy at the L2-3 level. Once it was in good position in the posterior ? of the body and at the disc space, a wire was passed. IONM was used to stimulate the probes before at 2 and 5 mA with no responses in all 4 quadrants. Dilator was then placed over the probe and stimulated and there was no response again. Retractor blades were then chosen and retractor placed and secured in position and to the table. The blades were carefully then opened slightly and the IONM probe sent down all 4 quadrants again without any responses at 2, 5 and 10 mA. The retractor was then opened further for visualization and the dilators and wire removed. Disc space was visible and a combination of bipolar and EC were used to clean margins and identify disc. Once it was identified, rongeur was used to remove outer osteophytes. A osteotome was then used to pass through the disc space under fluoroscopic guidance once this was passed a Linares was then passed in a similar fashion through to the opposite side to release the osteophytes on this side as well. Once these were released sequential box osteotomes were passed in a similar fashion until the disc had been completely removed. Good bleeding endplates were noted. Pituitary was used to remove any floating or excess fragments. The trial was then placed and sized. The disc space was irrigated. A [55 mm x 18 mm 10-17mm] expandable lateral leg spine cage was then selected and placed under fluoroscopic guidance. The cages then expanded to its desired height, reducing a and restoring disc space height and lordosis and alignment. The cage was backfilled with MagnetOs. The strategic planning specialist was then removed and the area inspected. No injury was evident, minimal bleeding was cauterized and AP and Lateral images confirmed good placement of cage. The retractor was then removed under direct visualization at 20 min in the psoas. We then repositioned for L3-4 level. Blunt probe was placed with the help of biplanar fluoroscopy at the L3-4 level. Once it was in good position in the midportion of the body and at the disc space, a wire was passed. IONM was used to stimulate the probes before at 2 and 5 mA with no responses in all 4 quadrants. Dilator was then placed over the probe and stimulated and there was no response again. Retractor blades were then chosen and retractor placed and secured in position and to the table. The blades were carefully then opened slightly and the IONM probe sent down all 4 quadrants again without any responses at 2, 5 and 10 mA. The retractor was then opened further for visualization and the dilators and wire removed. Disc space was visible and a combination of bipolar and EC were used to clean margins and identify disc. Once it was identified, rongeur was used to remove outer osteophytes. A osteotome was then used to pass through the disc space under fluoroscopic guidance once this was passed a Linares was then passed in a similar fashion through to the opposite side to release the osteophytes on this side as well. Once these were released sequential box osteotomes were passed in a similar fashion until the disc had been completely removed. Good bleeding endplates were noted. Pituitary was used to remove any floating or excess fragments. The trial was then placed and sized. The disc space was irrigated. A [55 mm x 18 mm 10-17mm] expandable lateral leg spine cage was then selected and placed under fluoroscopic guidance. The cages then expanded to its desired height, reducing a and restoring disc space height and lordosis and alignment. The cage was backfilled with MagnetOs. The strategic planning specialist was then removed and the area inspected. No injury was evident, minimal bleeding was cauterized and AP and Lateral images confirmed good placement of cage. The retractor was then removed under direct visualization at 20 min in the psoas. The wound was copiously irrigated with NSS. The deep fascia was then closed with 0 Vicryl superficial closed with 2-0 Vicryl and the skin was closed with a 3-0 running strata fix Monocryl. Skin glue was then placed after it was cleaned it was then dressed sterilely with an operative foam dressing. The patient was transferred back to their hospital bed atraumatically and the beds were flipped for the second stage posteriorly. Pt was then positioned prone on a [employer] spine top table. All bony prominences including wrists, elbows, axilla, chest, hips, and thighs, and feet were padded very well. Special attention was paid to the genitalia and these were padded accordingly. SCDs were placed on bilateral lower extremities and were connected. Arms were well padded and placed on armboard pillows. The patient was taped to the table and secured. Once in position, again we confirmed good ventilation capabilities and that lines were running appropriately. The patient's left lateral lumbar and flank was then exposed. 1010s were placed outlining the incision site. Standard alcohol was used to clean the incision site and allowed to dry. C-arm was used to biomark the patient and confirm level for incision which was marked with a skin marker. Operative briefing was performed with all teams and everyone in agreement to proceed. The patient was then prepped and draped in a normal sterile fashion. Timeout was then performed and all parties were in agreement with the procedure to be performed. Skin nicks were then made over the PSIS on the Right side and pins placed for the Prelert Navigation tracker system. This was then secured. A 3D Ziehm spin was then obtained and registered. Once it was confirmed to be accurate, pedicles were targeted through bilateral skin incisions over L2 through L4. Navigated Jamshidi was used to plan screws followed by a navigated juwan and drill bit. Once drilled a wire was placed in the pedicle and they were all confirmed to be in good position on AP and Lateral imaging. Screws were then placed over the wires using lateral imaging. Once in position screws were tested and all tested above 20 mA. Rods were then selected and bent appropriately. Posterolateral gutters were decorticated with a high speed juwan and autograft and MagnatOs placed in the PL gutters for fusion. Rods were then placed through tulip heads, subfascial and secured with set screws. Set screws were then finally tightened. Tabs were broken off. AP and Lateral imaging confirmed good placement of screws with reduction of height, lordosis and alignment. Wounds were copiously irrigated with NSS. Local anesthetic is placed remote to the incision for the block. The deep fascia was closed with 0 vicryl. Superficial closed with 2-0 Vicryl and skin closed with aristides. Wound edges approximated very well. Wounds were then cleaned and dressed sterilly with optifoam dressing. The patient was then transferred to their hospital bed atraumatically. Patient was then awakened and extubated by the department of anesthesia having tolerated the procedure very well with no complications. They were transferred to the postoperative care unit in stable condition.
--- NOTE | 2024-02-19 15:29 | XR ---
Fluoroscopy History: L2/L4 Fusion 38 sec fluoro, 108.0692 Gycm2
[2024-02-19] MEDS: HYDROmorphone 0.5 MG/0.5 ML SYRINGE IVP PRN ×2 (16:22→20:20)
[2024-02-19] MEDS: ONDANSETRON 4 MG/2 ML VIAL IVP ONE (18:27)
[2024-02-19] MEDS: DEXAMETHASONE SOD PHOSPHATE 4 MG/ML 1 ML VIAL IV ONE (18:27)
[2024-02-19] MEDS: CYCLOBENZAPRINE 5 MG TAB PO PRN (18:34)
--- NOTE | 2024-02-19 22:28 | CT ---
EXAM: CT Lumbar Spine Without Intravenous Contrast CLINICAL HISTORY: ITS.REASON CT Reason: Post op L2-L3, L4-L4 lateral fusion with posterior TECHNIQUE: Axial computed tomography images of the lumbar spine without intravenous contrast. CTDI is 39.5 mGy and DLP is 1379 mGy-cm. This CT exam was performed using one or more of the following dose reduction techniques: automated exposure control, adjustment of the mA and/or kV according to patient size, and/or use of iterative reconstruction technique. COMPARISON: 10/26/23 FINDINGS: There is normal lumbar lordosis, vertebral body height, and alignment. There is no acute fracture or traumatic subluxation. Patient has undergone recent lumbar spine surgery. There are posterior skin closure aristides and subcutaneous gas. Posterior hardware fixation extends from L2-L4 with paired vertical rods and bilateral pedicle screws. Screws are well positioned. Hardware is intact. Interbody grafts are present at L3-L4 and L4-L5. Disc heights above and below the levels of fusion appear preserved. There is multilevel facet degeneration, progressive caudally. Evaluation of the spinal canal and foramina is limited by beam hardening artifact. Mild spinal canal stenosis is suggested at L3-L4, L4-L5, and L5-S1. Mild-moderate right and severe left foraminal narrowing are suggested at the L3-L4 level. Mild to moderate bilateral foraminal narrowing is suggested bilaterally at L4-L5. Foramina appear otherwise patent. Sacroiliac joints are normally aligned. Intramuscular emphysema within both psoas muscles is compatible with recent postoperative change. IMPRESSION: Radiographically uncomplicated posterior hardware fixation and interbody fusion L2-L4.
[2024-02-19] MEDS: HYDROmorphone 1 MG/ML 1 ML SYRINGE IVP PRN (23:13)
[2024-02-20] MEDS: SENNOSIDES-DOCUSATE SODIUM 1 EACH TAB PO SCH (08:15)
[2024-02-20] MEDS: HYDROcodone/APAP 5-325MG 1 EACH TAB PO PRN (08:16)
[2024-02-20 08:52] VITALS: RESP 17
[2024-02-20 08:59] LABS: Basophils % (A) 0 %; Eosinophils # (A) 0.1 k/uL (0-0.7); Eosinophils % (A) 0 %; HCT 35.2 % (34.0-46.0); HGB 11.6 gm/dL (11.4-16.0); Lymphocytes # (A) 2.4 k/uL (1.0-4.8); Lymphocytes % (A) 16 %; MCH 31.8 pg (25.0-35.0); MCV 96.1 fL (80.0-100.0); Mean Platelet Volume 8.4; Monocytes # (A) 0.7 k/uL (0-1.0); Monocytes % (A) 5 %; Neutrophils # (A) 11.6 k/uL (1.3-7.7); Neutrophils % (A) 78 %; Platelet Count 166 k/uL (150-450); RBC 3.67 m/uL (3.80-5.40); RDW 13.4 % (11.5-15.5); WBC 14.8 k/uL (3.8-10.6)
--- NOTE | 2024-02-20 09:00 | P.PN ---
Subjective Progress Note Date: 02/20/24 Principal diagnosis: 1. 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 Bilateral lower extremity radiculopathy 3. Bilateral lower extremity weakness Patient seen and examined this morning. She is resting comfortably in bed. Patient has complaint of moderate pain in the lumbar spine. Discussed with patient to request oral pain medication to better optimize pain management. Patient verbalizes understanding. Encourage patient use of ice packs to the lumbar spine as well. Informed patient that she may have breakfast in bed, but she needs to be up to the chair for all meals. Patient is looking forward to working with physical therapy today. Her LSO brace is at the bedside. Prescription has been placed in her chart for a rolling walker. Surgical incisions to the left lateral abdomen and posterior lumbar spine are clean dry and intact. Encourage use of incentive spirometer while awake. No acute concerns at this time. Objective - Vital Signs Vital signs: Vital Signs Temp 98.3 F 02/20/24 07:18 Pulse 86 02/20/24 07:18 Resp 17 02/20/24 07:18 BP 133/83 02/20/24 07:18 Pulse Ox 99 02/20/24 07:18 FiO2 Intake & Output 02/19/24 02/20/24 02/20/24 18:59 06:59 18:59 Intake Total 2650 Output Total 475 2400 Balance 2175 -2400 Weight 89.2 kg Intake: IV 2650 Output: Urine 300 2400 Uretheral (León) 2400 Estimated Blood Loss 175 Other: Voiding Method Indwelling Catheter - Exam Physical Examination General: The patient is awake and alert, in no acute distress Skin: Skin is warm and dry with no obvious rashes or lesions. Surgical incision to the left flank region and posterior lumbar spine, dressings are clean dry and intact. Eye: Pupils are equal, round and reactive to light, extra-ocular movements are intact; there is normal conjunctiva bilaterally. Neck: The neck is supple, there is no tenderness and ROM intact. Cardiovascular: There is a regular rate and rhythm. No murmur, rub or gallop is appreciated. Respiratory: Respirations are non-labored, breath sounds are equal. Gastrointestinal: Soft, non-distended, non-tender abdomen. Back: There is no tenderness to palpation in the midline, paralumbar, parathoracic or buttocks region. There is no obvious deformity . Musculoskeletal: ROM limited secondary to pain and stiffness from surgical procedure. Muscle strength in all major muscle groups of bilateral upper extremities 5/5, bilateral lower extremities 4/5. Neurological: CN 2-12 intact. There are no obvious motor or sensory deficits. Movement and coordination equal and intact. Sensory exam to light touch intact C5-T1 and intact from L2-S1. Reflexes 2/4 in bilateral upper and lower extremities. Negative Hoffmans, babinski, and clonus signs. Psychiatric: Cooperative, appropriate mood & affect, normal judgment. Assessment and Plan Assessment: Postop day 1: Stage I L2-L4 lateral interbody fusion, stage II L2-L4 posterior stabilization and fusion 1. 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 Bilateral lower extremity radiculopathy 3. Bilateral lower extremity weakness Plan: -Appreciate operational risk consultant and team management. -Activity: Ambulate QID, OOB all meals, up and about, limit lifting bending twisting to less than 5 lbs. Use walker or cane if needed for stability. -Daily PT/OT, increase ambulation strength and balance. -Brace when up and about, not needed in bed or chair - Prescription for rolling walker has been placed in chart -Pain control: Adequate at this time -Meds: reviewed -GI ppx: senna, Miralax -DVT PPX: OK to restart Heparin tonight -Hygiene: Shower today. Maintain dressing clean and dry. Meticulous cleaning after BMs away from the incision site -Encourage IS 10x/hr -Dispo: Anticipate discharge home later today vs tomorrow with homecare *I reviewed and discussed this case with my attending Dr. Bruno, whom has reviewed this chart and films and is in agreement with assessment and plan of care as outlined above. I have personally seen and examined the patient, performed the documentation and the assessment and plan as written. Number of minutes spent on the visit: 20m.
[2024-02-20 09:20] LABS: African American GFR (CKD) >90 (>60 ml/min/1.73 sqM); Anion Gap 8 mmol/L; Blood Urea Nitrogen 16 mg/dL (7-17); Calcium 9.1 mg/dL (8.4-10.2); Carbon Dioxide 28 mmol/L (22-30); Chloride 104 mmol/L (98-107); Glucose 104 mg/dL (74-99); Non-African American GFR(CKD) 84 (>60 ml/min/1.73 sqM); Potassium 4.4 mmol/L (3.5-5.1); Sodium 140 mmol/L (137-145)
[2024-02-20] MEDS ORDERED: ALBUTEROL NEBULIZED 2.5 MG/3 ML INHALATION PRN (09:47)
[2024-02-20] MEDS: PANTOPRAZOLE 40 MG TABLET PO SCH (10:57)
[2024-02-20] MEDS: HYDROcodone/APAP 10-325MG 1 EACH TAB PO PRN (11:28)
--- NOTE | 2024-02-20 13:11 | P.DS ---
Providers Date of admission: 02/19/24 08:27 Expected date of discharge: 02/20/24 Attending physician: Te Bruno DO Consults: 02/19/24 14:57 Consult Physician Routine Consulting Provider: Liberty Berrios Consult Reason/Comments: Medical Management Do you want consulting provider notified?: Yes Primary care physician: [facility] Course: Hospital Course: The patient was evaluated preoperatively and found to have the diagnosis of Lumbar spondylosis with stenosis. They underwent appropriate preoperative care and were willing to undergo the intended procedure. They underwent a successful Stage I: L2-L4 lateral interbody fusion with stage II L2-L4 posterior stabilization and fusion were recovered appropriately and sent to the floor. While on the floor they worked with physical therapy, occupational therapy and nursing to enhance their recovery experience. Their pain was well controlled through their stay and they were started on appropriate medications, DVT ppx modalities, activity and dietary needs. Daily labs were monitored closely, and transfusions were only used when necessary. Medicine as well as other consulting services have made their input and have helped with our team approach and multidisciplinary care. PT milestones have been met and passed and they have made the recommendation of home for this patient and treating providers agree with this care path. The patient will be discharged home with appropriate medications, instructions and follow-up information and in stable condition. Patient Condition at Discharge: Good Plan - Discharge Summary Discharge Rx Participant: Yes New Discharge Prescriptions: New Sennosides/Docusate Sodium [Senna Plus 8.6-50 mg Softgel] 1 each PO DAILY PRN #20 capsule PRN Reason: Constipation cefaDROXiL [Duricef] 500 mg PO Q12HR #10 cap Cyclobenzaprine [Flexeril] 5 mg PO TID #40 tablet HYDROcodone/APAP 10-325MG [[place] 10-325] 1 tab PO Q4-6H PRN #42 tab PRN Reason: Pain No Action Albuterol Sulfate [Proair Hfa] 1 - 2 puff INHALATION Q6HR PRN #1 inhaler PRN Reason: Shortness Of Breath Omeprazole 20 mg PO DAILY Atorvastatin [Lipitor] 20 mg PO DAILY Discharge Medication List Albuterol Sulfate [Proair Hfa] 1 - 2 puff INHALATION Q6HR PRN #1 inhaler 12/25/17 [Rx] Atorvastatin [Lipitor] 20 mg PO DAILY 02/15/24 [History] Omeprazole 20 mg PO DAILY 02/15/24 [History] Cyclobenzaprine [Flexeril] 5 mg PO TID #40 tablet 02/20/24 [Rx] HYDROcodone/APAP 10-325MG [[place] 10-325] 1 tab PO Q4-6H PRN #42 tab 02/20/24 [Rx] Sennosides/Docusate Sodium [Senna Plus 8.6-50 mg Softgel] 1 each PO DAILY PRN #20 capsule 02/20/24 [Rx] cefaDROXiL [Duricef] 500 mg PO Q12HR #10 cap 02/20/24 [Rx] Follow up Appointment(s)/Referral(s): Te Bruno DO [Doctor of Osteopathic Medicine] - 03/07/24 11:30 am [facility] Visiting Nurse, [NON-STAFF] - 1-2 Days ([facility] will call you to schedule your in home nursing and physical therapy visits. ) Activity/Diet/Wound Care/Special Instructions: Spine Discharge and Recovery Instructions Date of Surgery: 02/19/24 Diagnosis: Lumbar spondylosis with stenosis Procedure: Stage 1: L2-L4 lateral lumbar fusion. Stage 2: L2-L4 posterior stabilization with fusion Medications: See medication list All medication refills should be obtained through your primary care doctor or your clinic spine surgeon. Please discuss prescription refills at your follow up appointment. Do not call the hospital for medication refills. Activity: Encourage ambulation with assist of walker, Up and about 6-8x daily PT/OT daily work on balance, strength and mobility Up in chair with all meals Shower daily Brace: Use brace when up and about, do not wear in bed or shower Dressing: Leave your dressing in place for a total of 3 days post operatively. Then you may remove your dressing and leave open to air. Keep the area clean and if not able to keep area clean, then cover with sterile gauze and tape. Showering: You may shower 3 days after your procedure allowing soap and water to run over incision. Do not scrub. Do not soak. Blot dry. Follow up: Please confirm a follow up appointment with your surgeon 2 weeks post operatively. Please make an appointment to follow up with your PCP in 1-2 weeks after surgery for evaluation `3 phase, 3-week plan POST OP WEEKS 1-3 1. Lifting/carrying/pushing/pulling limited to less than 5 pounds. 2. Do not sit for longer than 15 minutes at one time. Get up and walk around. Prolonged sitting is NOT advised. If you lay down, see if you can tolerate laying down on you front (belly side) 3. Walk for periods of 15 minutes = 1 mile but no longer; do it multiple times times each day. 4. Ice your low back after activity. POST OP WEEKS 3-6 1. Lifting limited to less than 20 pounds. 2. Do not sit for longer than 30 minutes at a time. Frequently change positions. Use a sit-to stand workstation or take frequent breaks from sitting if you have returned to work. 3. Walk for 30 minutes each day. If possible, do these three or more times a day POST OP WEEKS 6+ At your 6-week appointment we will give you a physical therapy referral to focus on a core stabilization and strengthening program. You should also work on leg & buttock strengthening, hamstring & quadriceps stretching, and continue a low impact aerobic activity program such as swimming, walking, or riding a stationary bicycle. During the initial 6 weeks after your surgery, you are at the highest risk of re-injuring your spine. You should generally avoid BLTs (bending, lifting and twisting combination motions) and follow the above guidelines to reduce the chance of reinjury. You can anticipate post op appointments in our office at approximately 3 weeks and 6 weeks after your surgery. INCISION CARE: If your incision is not draining you do NOT need to cover it with a dressing. Keep your incision clean, dry and intact. In most cases, we apply skin glue, aristides or sutures to the incision at the time of surgery. This will be like a crust or have the appearance of a scab and will fall off in time on its own. The stitches or aristides need to be removed at 3 weeks post op appointment. You may begin to shower 3 days after surgery (this allows the glue to tamayo well). However, please avoid scrubbing the incision site or peeling off any of the skin glue. This will ensure optimal healing of your incision. Also, during this time avoid soaking the incision area in water - this includes swimming pools, hot tubs or baths. No ointments, lotions or oils on the incision until your surgeon allows. Leave aristides, sutures or glue in place. Neurological dysfunction that comes on suddenly can also be a sign of a stroke. Below some common symptoms of a stroke are listed: B - balance difficulty such as sudden onset walking or leaning to one side - NEW E - eye problem such as sudden double vision or trouble seeing on one side - NEW F - Facial weakness or numbness on one side - NEW A - Arm or leg weakness or numbness on one side - NEW S - Slurred speech or difficulty with word finding - NEW T - Time is BRAIN! Call 911 as soon as you recognize these symptoms Diet: Consume a regular diet rich in vegetables and lean protein such as chicken or fish. You should consume in a ratio of approximately 20% fats|40% carbohydrates|40%protein. Vegetables, sweet potatoes, brown rice or quinoa are examples of good carbohydrates. Chips, white bread, cookies and sweets/sugar are examples of bad carbohydrates. Limit your bad carbs, go wild with good carbs. "Life's Simple 7" Guidelines as per [place] [employer] These will help you reclaim your life after surgery and melt helper in your recovery, keeping in mind your restrictions. (1) Get Active. Physical activity can help people lose weight, control high blood pressure and cholesterol, feel emotionally better, and sleep better. (2) Control Cholesterol. Avoid a diet high in saturated fat, trans fat, & cholesterol. Limit whole milk & cream, ice cream, butter, egg yolks, processed meats (like sausage and hot dogs), and fatty meats. Choose healthy foods that are low in saturated fat, trans fat and cholesterol which include: Fruits and vegetables, fiber rich grain products (like whole grain pasta and brown rice), lean meat such as chicken, fish, nuts, seeds, and legumes. (3) Eat Better. Eat small portions. Shop at the grocery with a list and do not stray from it. Tips for a healthy diet include: Limit sodium intake to less than 1500mg daily, avoid prepackaged, processed, and fast foods, choose a diet rich in fruits, vegetables, and whole grain, high fiber foods, and limit saturated & cholesterol in your diet. (4) Manage Blood Pressure. If you have high blood pressure, you should have a cuff at home so that you can check your blood pressure regularly. Be sure you have a good cuff. An arm one is generally better than a wrist one. Bring the cuff to a doctor's appointment to validate that the measurements that your cuff are taking are accurate. Take your blood pressure twice daily when you are sitting down and relaxing. Record the numbers in a log and bring this log with you to your doctors' appointments. (5) Lose Weight if your BMI is above 25. A healthy BMI is between 19-25. To calculate Your BMI, you may use a Standard BMI Calculator on the NIH BMI website: <www.nhlbi.nih.gov/guidelines/obesity/BMI/bmicalc.htm>. Weigh oneself daily. If you are overweight, set a goal to lose weight. A pound a week loss if needed is a good target. (6) Reduce Blood Sugar. Limit foods and liquids with "added sugars." (Added sugars include sucrose, fructose, glucose, maltose, dextrose, high fructose corn syrup, corn syrup, concentrated fruit juice and honey). (7) Stop Smoking. If you smoke, quitting smoking is one of the best things that you can do for your health. Smoking increases your risk of heart attack, stroke, and peripheral vascular disease, which is a build-up of plaque in your arteries. Please discard all the cigarettes and lighters in your house. Have a plan for what you will do when you have the urge to smoke. Direct and second- hand smoke shortens your life as well as the lives of your family, friends and others around you. For your health and the health of those around you, please consider quitting! Proper Bending Body Mechanics: Maintain a wide stance with one foot slightly in front of the other. Keep your back straight. Bend utilizing the strength in your hips and knees. Do not bend at the waist. Maintain the lifted object at your waist-level close to your body. Avoid lifting weight that causes immediately pain or pain anywhere in the body afterwards. Smoking/Nicotine If there was ever one thing that you could do to increase your overall health, decrease your risk of cardiovascular problems by about 39% the second you make the choice, it is to STOP SMOKING. Your body's most instant gratification is the second you stop smoking. We have all heard the studies, read the articles but it is true, smoking is extremely bad for your overall health, and moreover it is detrimental to your bone health. Nicotine, IN ANY FORM, kills bone cells, prevents your body from healing fractures, and significantly prolongs healing after surgery. In spine surgery specifically, it increases your risk of not healing your bones to create a fusion and increases your risk of having a revision surgery due to this up to 60%. I know it is hard. I know it feels impossible. But there are ways. Take control of your life. We are here to help you through it. And when you are ready, ask us and we can direct you to help if you desire. Use the START Plan to Quit Smoking (please visit the Helpguide.org website listed below for more information): S = Set a quit date. Choose a date within the next 2 weeks, so you have enough time to prepare without losing your motivation to quit. If you mainly smoke at work, quit on the weekend, so you have a few days to adjust to the change. T = Tell family, friends, and co-workers that you plan to quit. Let your friends and family in on your plan to quit smoking and tell them you need their support and encouragement to stop. Look for a quit vazquez who wants to stop smoking as well. You can help each other get through the rough times. A = Anticipate and plan for the challenges you'll face while quitting. Most people who begin smoking again do so within the first 3 months. You can help yourself make it through by preparing ahead for common challenges, such as nicotine withdrawal and cigarette cravings. R = Remove cigarettes and other tobacco products from your home, car, and work. Throw away all your cigarettes (no emergency pack!), lighters, ashtrays, and matches. Wash your clothes and freshen up anything that smells like smoke. Shampoo your car, clean your drapes and carpet, and steam your furniture. T = Talk to your doctor about getting help to quit. Your doctor can prescribe medication to help with withdrawal and suggest other alternatives. If you can't see a doctor, you can get many products over the counter at your local pharmacy or grocery store, including the nicotine patch, nicotine lozenges, and nicotine gum. Resources for Quitting Smoking: <https://www.[place].gov/documents/mdch/Quit_[place] cco_Resources_for_patients_313480_7.pdf> Supplementation: Take recommended dosages of Vitamin D and Calcium to help fortify your bones and help them to heal. See your health maintenance packet for dosages and recommended levels. DVT/VTE prophylaxis: You will be given compression stockings from the hospital. Wear these daily for the first two weeks after surgery. You may take them off at night. You may be prescribed a medication to help thin your blood. Take this as directed. If you are not prescribed this medication, early and frequent ambulation has been shown to be the best prophylaxis to deep vein thrombosis and sequelae related to this event. Discharge Disposition: HOME SELF-CARE
[2024-02-20 15:28] VITALS: BP 116/76; PULSE 92; TEMP 98.8
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
[2024-02-21] MEDS ORDERED: ATORVASTATIN 20 MG TAB PO SCH (09:00)
== END 2024-02-20 15:48 | disposition home or self-care (01) | DRG 304 ==
LOC: 2ORMAIN 08:27 → 4SSUR 17:20
PROVIDERS: ADMIT Orthopaedic Surgery; ATTEND Orthopaedic Surgery
PROC: 8E0WXBF Computer Assisted Procedure of Trunk Region, With Fluoroscopy (ICD-10-PCS; 2024-02-19)
PROC: 0SG1071 Fusion of 2 or more Lumbar Vertebral Joints with Autologous Tissue Substitute, Posterior Approach, Posterior Column, Open Approach (ICD-10-PCS; principal; 2024-02-19 10:15)
PROC: 0SG10A0 Fusion of 2 or more Lumbar Vertebral Joints with Interbody Fusion Device, Anterior Approach, Anterior Column, Open Approach (ICD-10-PCS; 2024-02-19 10:15)
DX: M47.26 Other spondylosis with radiculopathy, lumbar region (principal); M48.56XA Collapsed vertebra, not elsewhere classified, lumbar region, initial encounter for fracture; E66.9 Obesity, unspecified; M48.061 Spinal stenosis, lumbar region without neurogenic claudication; M51.16 Intervertebral disc disorders with radiculopathy, lumbar region; G47.8 Other sleep disorders; M25.78 Osteophyte, vertebrae; E78.5 Hyperlipidemia, unspecified; D72.828 Other elevated white blood cell count; K21.9 Gastro-esophageal reflux disease without esophagitis; Z68.36 Body mass index [BMI] 36.0-36.9, adult; Z86.16 Personal history of COVID-19; Z87.891 Personal history of nicotine dependence; Z79.899 Other long term (current) drug therapy
CPT/HCPCS: 72100; 72131; 80048; 85025

== ENCOUNTER 2024-07-12 10:36 | Emergency (ER) | payer OTHER ==
--- NOTE | 2024-07-12 11:25 | ED ---
Lower Extremity Injury HPI - General Chief Complaint: Extremity Injury, Lower Stated Complaint: Fall-L hip pain Time Seen by Provider: 07/12/24 10:49 Source: patient, RN notes reviewed Mode of arrival: ambulatory Limitations: no limitations - History of Present Illness Initial Comments: This is a 59-year-old female who presents to the emergency department for a fall. Patient tripped and fell 5 days ago and injured her left hip. Pain was not bad initially, but states that it has continued to get worse. She has also noticed bruising and pain going into the groin. Pain gets better with movement, but states that whenever she tries to lift her leg, it begins to get much worse. She saw her primary care provider who ordered an x-ray and an ultrasound, but states that it would not be done for a week and she was unable to wait that long. - Related Data Home Medications Medication Instructions Recorded Confirmed Atorvastatin [Lipitor] 20 mg PO DAILY 02/15/24 02/15/24 Omeprazole 20 mg PO DAILY 02/15/24 02/15/24 Previous Rx's Medication Instructions Recorded Albuterol Sulfate [Proair Hfa] 1 - 2 puff INHALATION Q6HR PRN #1 12/25/17 inhaler Cyclobenzaprine [Flexeril] 5 mg PO TID #40 tablet 02/20/24 HYDROcodone/APAP 10-325MG [Prospect 1 tab PO Q4-6H PRN #42 tab 02/20/24 10-325] Sennosides/Docusate Sodium [Senna 1 each PO DAILY PRN #20 capsule 02/20/24 Plus 8.6-50 mg Softgel] cefaDROXiL [Duricef] 500 mg PO Q12HR #10 cap 02/20/24 Meloxicam [Mobic] 15 mg PO DAILY PRN #30 tab 07/12/24 methocarbamoL [Robaxin-750] 1,500 mg PO TID PRN #30 tab 07/12/24 Allergies Allergy/AdvReac Type Severity Reaction Status Date / Time No Known Allergies Allergy Verified 02/19/24 08:42 Review of Systems ROS Statement: Those systems with pertinent positive or pertinent negative responses have been documented in the HPI. ROS Other: All systems not noted in ROS Statement are negative. Past Medical History Past Medical History: GERD/Reflux, Hyperlipidemia, Osteoarthritis (OA) Additional Past Medical History / Comment(s): ddd-lumbar, covid in 2019-thinks still has post covid cough History of Any Multi-Drug Resistant Organisms: None Reported Past Surgical History: Hysterectomy, Orthopedic Surgery Past Anesthesia/Blood Transfusion Reactions: No Reported Reaction Past Psychological History: Depression Smoking Status: Former smoker Past Alcohol Use History: None Reported Past Drug Use History: Marijuana - Past Family History Mother Family Medical History: Hypertension, Osteoarthritis (OA) Father Family Medical History: Osteoarthritis (OA) General Exam Limitations: no limitations General appearance: alert, in no apparent distress Head exam: Present: atraumatic, normocephalic, normal inspection Respiratory exam: Present: normal lung sounds bilaterally. Absent: respiratory distress, wheezes, rales, rhonchi, stridor Cardiovascular Exam: Present: regular rate, normal rhythm, normal heart sounds. Absent: systolic murmur, diastolic murmur, rubs, gallop, clicks Extremities exam: Present: other (Tenderness to palpation over the left hip. Range of motion induces pain. 2+ DP and PT pulses.) Neurological exam: Present: alert, oriented X3, CN II-XII intact Psychiatric exam: Present: normal affect, normal mood Skin exam: Present: warm, dry, intact, normal color. Absent: rash Course Vital Signs 07/12/24 10:45 Temperature 98.4 F Pulse Rate 80 Respiratory 16 Rate Blood Pressure 149/96 O2 Sat by Pulse 98 Oximetry Medical Decision Making - Medical Decision Making This is a 59 year old female who presents to the emergency department for hip pain after a fall. Was pt. sent in by a medical professional or institution? @ -No Did you speak to anyone other than the patient for history? @ -No Did you review nursing and triage notes? @ -Yes, and I agree, it is accurate with regards to the patient's symptoms. Were old charts reviewed? @ -No Differential Diagnosis? @ -Differential Musculoskeletal: Muscular strain, contusion, ligament sprain, fracture, arthritis, septic arthritis, bursitis, cellulitis, muscle spasm, nerve compression, DVT, arterial occlusion, herpes zoster, electrolyte abnormality, tumor.... This is not meant to be in all inclusive list EKG interpreted by me (3pts min.)? @ -Not obtained X-rays interpreted by me (1pt min.)? @ -X-ray of the left hip and AP pelvis obtained. My interpretation identifies no acute fractures CT interpreted by me (1pt min.)? @ -Not obtained U/S interpreted by me (1pt. min.)? @ -Duplex ultrasound of the left lower extremity obtained. My interpretation identifies no evidence of a DVT. What testing was considered but not performed? (CT, X-rays, U/S, labs)? Why? @ -None What meds were considered but not given? Why? @ -None Did you discuss the management of the patient with other professionals? @ -No Did you reconcile home meds? @ -No Was smoking cessation discussed for >3mins.? @ -No Was critical care preformed (if so, how long)? @ -No Were there social determinants of health that impacted care today? How? (Homelessness, low income, unemployed, alcoholism, drug addiction, transportation, low edu. Level, literacy, decrease access to med. care, custodial, rehab)? @ -No Was there de-escalation of care discussed even if they declined? (Discuss DNR or withdrawal of care, Hospice)? @ -No What co-morbidities impacted this encounter? (DM, HTN, Smoking, COPD, CAD, Cancer, CVA, Hep., AIDS, mental health diagnosis, sleep apnea, morbid obesity)? @ -Osteoarthritis Was patient admitted / discharged? @ -Discharged. X-ray of the left hip and AP pelvis obtained revealing no acute fractures. Duplex ultrasound of the left lower extremity obtained as well, revealing no evidence of DVT or other acute process. Patient declined the need for any pain medication in the emergency department. Prescription for meloxicam and Robaxin provided to see if that offers her any benefit to her symptoms. Information for orthopedic follow-up provided as well in the event symptoms do not improve. Otherwise advised follow-up with her primary care provider. Patient discharged home in stable condition. Case discussed with ED attending Dr. Robertson. Return precautions reviewed in depth, the patient is instructed to return to the emergency department with any new, worsening, or concerning symptoms. Patient verbalized understanding. Undiagnosed new problem with uncertain prognosis? @ -None Drug Therapy requiring intensive monitoring for toxicity (Heparin, Nitro, Insulin, Cardizem)? @ -None Were any procedures done? @ -None Diagnosis/symptom? @ -Left hip pain Acute, or Chronic, or Acute on Chronic? @ -Acute Uncomplicated (without systemic symptoms) or Complicated (systemic symptoms)? @ -Uncomplicated Side effects of treatment? @ -None Exacerbation, Progression, or Severe Exacerbation] @ -Progression Poses a threat to life or bodily function? @ -No - Radiology Data Radiology results: report reviewed, image reviewed Disposition Clinical Impression: Left hip pain Disposition: HOME SELF-CARE Instructions (If sedation given, give patient instructions): Hip Pain (ED) Additional Instructions: Return to the emergency department with any new, worsening, or concerning symptoms. Start taking the Mobic once daily to see if this helps with your pain. Take this with Tylenol if needed, however do not take other anti- inflammatories such as ibuprofen with this, take one or the other. Take the Robaxin as 1 to 2 tablets up to 3-4 times daily, however be aware that this may make you drowsy. You can contact orthopedics as listed below for a follow-up appointment and further evaluation. Follow up with your primary care provider in 1-2 days. Prescriptions: Meloxicam [Mobic] 15 mg PO DAILY PRN #30 tab PRN Reason: Pain methocarbamoL [Robaxin-750] 1,500 mg PO TID PRN #30 tab PRN Reason: Pain Is patient prescribed a controlled substance at d/c from ED?: No Referrals: Rachel Herron MD [Primary Care Provider] - 1-2 days Kevon Madrigal DO [Doctor of Osteopathic Medicine] - 1-2 days Time of Disposition: 12:25
--- NOTE | 2024-07-12 11:32 | XR ---
EXAMINATION TYPE: XR Hip LT and AP Pelvis DATE OF EXAM: 07/12/2024 11:12 AM CLINICAL INDICATION: Female, 59 years old with history of Pain; PHH COMPARISON: None. TECHNIQUE: XR Hip LT and AP Pelvis; hip was examined in the frontal and lateral projections and a AP pelvis. FINDINGS: No evidence for acute process, joint dislocation or significant soft tissue swelling. Osteo phyte formation of the superior acetabulum of the hip. There is mild joint space narrowing. Fixation changes lower spine appear intact. IMPRESSION: 1. No evidence for acute process. 2. Mild hip osteoarthrosis. [facility], , 07/12/2024 11:29 AM
--- NOTE | 2024-07-12 12:12 | US ---
EXAMINATION TYPE: US venous doppler duplex LE LT DATE OF EXAM: 07/12/2024 11:51 AM COMPARISON: NONE CLINICAL INDICATION: Female, 59 years old with history of Pain; Fell 5 days ago; pain swelling and br uising to LLE; Patient denies any other signs, symptoms, or relevant history SIDE PERFORMED: Left TECHNIQUE: The lower extremity deep venous system is examined utilizing real time linear array sonog ruthie with graded compression, doppler sonography and color-flow sonography. VESSELS IMAGED: Common Femoral Vein Deep Femoral Vein Greater Saphenous Vein * Femoral Vein Popliteal Vein Small Saphenous Vein * Proximal Calf Veins (* superficial vessels) Left Leg: Negative for DVT IMPRESSION: Grayscale, color doppler, spectral doppler imaging performed of the deep veins of the lo wer extremities. There is normal flow, compressibility, vascular waveforms. [facility], Workstation [id number], 07/12/2024 12:10 PM
[2024-07-12] MEDS: ACET/COD 300 MG/30 MG STARTER PACK 6 TAB BTL PO STA (12:34)
[2024-07-12 12:51] VITALS: BP 136/80; PULSE 76; RESP 18; TEMP 98.1
== END 2024-07-12 12:48 | disposition home or self-care (01) ==
LOC: EC 10:36
CPT/HCPCS: 73502; 99283

== ENCOUNTER → 2024-09-26 | Outpatient (CLI) | payer OTHER ==
--- NOTE | 2024-09-26 11:42 | US ---
EXAMINATION TYPE: US abdomen limited DATE OF EXAM: 09/26/2024 COMPARISON: Abdominal ultrasound 12/07/2017 CLINICAL INDICATION: Female, 59 years old with history of R10.13 EPIGASTRIC PAIN; epigastric pain TECHNIQUE: Grayscale and color Doppler imaging of the right upper quadrant was performed. 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 The visualized portions of the pancreas unremarkable. Edith er demonstrates diffusely increased echogenicity without service nodularity or focal lesion. Gallblad carlos demonstrates no stones, wall thickening, or surrounding fluid. Negative sonographic Betancourt sign. Common bile duct is within normal limits. Right kidney demonstrates no hydronephrosis, nephrolithiasi s, or solid mass. IMPRESSION: 1. No ultrasound evidence for an acute process. 2. Hepatic steatosis. [facility], , 09/26/2024 11:39 AM
== END | disposition home or self-care (01) ==
LOC: RADUSWWP 08:28
PROVIDERS: ATTEND Family Medicine
DX: K76.0 Fatty (change of) liver, not elsewhere classified (principal); R10.13 Epigastric pain
CPT/HCPCS: 76705

== ENCOUNTER → 2024-11-18 | Outpatient (CLI) | payer OTHER ==
--- NOTE | 2024-11-18 17:32 | XR ---
EXAMINATION TYPE: XR Hip RT and AP Pelvis DATE OF EXAM: 11/18/2024 5:05 PM COMPARISON: 07/12/2024 CLINICAL INDICATION: Female, 59 years old with history of M25.551, M46.1,G89.29; PHH, pain TECHNIQUE: XR Hip RT and AP Pelvis; hip was examined in the frontal and lateral projections and a AP pelvis. FINDINGS: No evidence for acute process, joint dislocation or significant soft tissue swelling. Osteo phyte formation of the superior acetabulum of the hip. There is mild joint space narrowing. Post surg ical changes in the lower spine appear intact. IMPRESSION: 1. No evidence for acute process. 2. Mild hip osteoarthrosis. [facility], , 11/18/2024 5:29 PM
== END | disposition home or self-care (01) ==
LOC: RADXRMAIN 16:45
PROVIDERS: ATTEND Registered Nurse
DX: M16.11 Unilateral primary osteoarthritis, right hip (principal); M46.1 Sacroiliitis, not elsewhere classified; G89.29 Other chronic pain
CPT/HCPCS: 73502

== ENCOUNTER → 2025-04-17 | Outpatient (CLI) | payer OTHER | END | disposition home or self-care (01) | LOC: RADCTMAIN 13:21 | PROVIDERS: ATTEND Family Medicine | DX: Z53.9 Procedure and treatment not carried out, unspecified reason (principal) ==

== ENCOUNTER 2025-04-28 18:14 | Observation (INO) | payer OTHER ==
--- NOTE | 2025-04-28 19:02 | ED ---
General Adult HPI - General Source: patient, RN notes reviewed Mode of arrival: ambulatory Limitations: no limitations <Valentina Carrillo - Last Filed: 04/28/25 19:01> - General Source: patient, RN notes reviewed, old records reviewed <Colin Robertson - Last Filed: 04/30/25 00:38> - General Chief complaint: Chest Pain Stated complaint: Chest pain,SOB Time Seen by Provider: 04/28/25 18:30 - History of Present Illness Initial comments: Quick [id number] female presenting to the emergency department for complaints of of right-sided chest pain that has been occurring over the past 3 days on inspiration. States that the pain will radiate into the right side of her neck as well. She states that she has had a decrease in appetite and has not been moving around much the past few days as she has chronic back pain. She denies history of DVT or PE. Denies blood thinners. (Valentina Carrillo) Patient is a 60-year-old female who presents emergency department with somewhat atypical chest pain. Is having some pleuritic chest pain.. Worse with deep inspiration. Worse with coughing. Has been present for the last 3 days. S tates it occasionally radiates into the right side of her neck. Has a history of chronic thoracic spine pain from prior surgery as well. No recent falls. No cardiac history. No history of blood clots. Denies any lower extremity swelling. No recent long distance travel. No fevers or chills but does endorse coughing. Cough is nonproductive. Presents for further evaluation at this time. No diaphoresis. No nausea or vomiting. Pain is not worse on exertion. (Colin Robertson) - Related Data Home Medications Medication Instructions Recorded Confirmed Acetaminophen [Tylenol Extra 1,000 mg PO Q4H 04/29/25 04/29/25 Strength] Ibuprofen [Motrin] 800 mg PO Q4HR 04/29/25 04/29/25 Previous Rx's Medication Instructions Recorded Aspirin 81 mg PO DAILY #30 tab 04/29/25 Atorvastatin [Lipitor] 40 mg PO HS #30 tab 04/29/25 Losartan [Cozaar] 25 mg PO DAILY #30 tab 04/29/25 Ondansetron Odt [Zofran Odt] 4 mg PO Q8HR PRN #6 tab 04/29/25 Pantoprazole Sodium [Protonix] 40 mg PO BID #60 tab 04/29/25 Allergies Allergy/AdvReac Type Severity Reaction Status Date / Time No Known Allergies Allergy Verified 04/29/25 11:10 Review of Systems ROS Other: All systems not noted in ROS Statement are negative. <Valentina Carrillo - Last Filed: 04/28/25 19:01> ROS Other: All systems not noted in ROS Statement are negative. <Colin Robertson - Last Filed: 04/30/25 00:38> ROS Statement: Those systems with pertinent positive or pertinent negative responses have been documented in the HPI. Review of Systems: CONST: Denies fever EYES: Denies blurry vision ENT: Denies nasal congestion C/V: Endorses right-sided chest wall pain RESP: Denies shortness of breath GI: Denies abdominal pain : Denies dysuria SKIN: Denies rash. MSK: Denies joint pain. NEURO: Denies headache (Colin Robertson) Past Medical History Past Medical History: GERD/Reflux, Hyperlipidemia, Osteoarthritis (OA) Additional Past Medical History / Comment(s): ddd-lumbar, covid in 2019-thinks still has post covid cough History of Any Multi-Drug Resistant Organisms: None Reported Past Surgical History: Hysterectomy, Orthopedic Surgery Past Anesthesia/Blood Transfusion Reactions: No Reported Reaction Past Psychological History: Depression Smoking Status: Former smoker Past Alcohol Use History: None Reported Past Drug Use History: Marijuana - Past Family History Mother Family Medical History: Hypertension, Osteoarthritis (OA) Father Family Medical History: Osteoarthritis (OA) <Valentina Carrillo - Last Filed: 04/28/25 19:01> General Exam Limitations: no limitations <Valentina Carrillo - Last Filed: 04/28/25 19:01> <Colin Robertson - Last Filed: 04/30/25 00:38> - General Exam Comments Initial Comments: Visual Physical Exam Vital signs reviewed General: Well-appearing, nontoxic, no acute distress. Head: Normocephalic, atraumatic Eyes: PERRLA, EOMI ENT: Airway patent Chest: Nonlabored breathing Skin: No visual rash, normal skin tone Neuro: Alert and oriented 3 Musculoskeletal: No gross abnormalities (Valentina Carrillo) General: Appears anxious HEAD: Normal with no signs of head trauma. EYES: PERRLA, EOMI, conjunctiva normal, no discharge. ENT: Hearing grossly intact, normal oropharynx. RESPIRATORY: Clear breath sounds bilaterally. No wheezes, rales, or rhonchi. C/V: Regular rate and rhythm. S1 and S2 auscultated, no edema, peripheral pulses 2+ and intact throughout. Chest pain is mildly reproducible with movement and on palpation. ABD: Abd is soft, nontender, nondistended EXT: Normal range of motion, no obvious deformity SKIN: No rashes or lesions observed on exposed skin. NEURO: Alert and oriented x 4. (Colin Robertson) Course Vital Signs 04/28/25 04/29/25 04/29/25 18:23 01:55 05:00 Temperature 97.9 F Pulse Rate 108 H 76 65 Respiratory 18 17 17 Rate Blood Pressure 159/108 153/88 125/87 O2 Sat by Pulse 100 97 98 Oximetry Medical Decision Making <Valentina Carrillo - Last Filed: 04/28/25 19:01> - Lab Data Result diagrams: 04/28/25 19:32 04/28/25 21:03 - EKG Data -: EKG Interpreted by Me <Colin Robertson - Last Filed: 04/30/25 00:38> - Medical Decision Making I completed the quick note portion of this chart signed Valentina Carrillo PA-C (Valentina Carrillo) Was pt. sent in by a medical professional or institution ([facility], DRAINAGE ENGINEER, urgent care, hospital, or fci...) When possible be specific @ -No Did you speak to anyone other than the patient for history (EMS, parent, family, police, friend...)? What history was obtained from this source @ -No Did you review nursing and triage notes (agree or disagree)? Why? @ -I reviewed and agree with nursing and triage notes Were old charts reviewed (outside hosp., previous admission, EMS record, old EKG, old radiological studies, urgent care reports/EKG's, fci records)? Report findings @ -Compared EKG with EKG from 2017. Patient does have what appears to be some mild ST segment depression with T wave inversions in the inferior leads but difficult to ascertain from July 2017. More pronounced today. No dynamic dynamic changes when comparing the 2 EKGs from today. Differential Diagnosis (chest pain, altered mental status, abdominal pain women, abdominal pain men, vaginal bleeding, weakness, fever, dyspnea, syncope, headache, dizziness, GI bleed, back pain, seizure, CVA, palpatations, mental health, musculoskeletal)? @ -Differential Chest Pain: Stable Angina, Unstable Angina, STEMI, NSTEMI Aortic Dissection, Pneumothorax, Musculoskeletal, Esophageal Spasm GERD, Cholecystitis, Pancreatitis, Zoster, this is not meant to be an all-inclusive list. EKG interpreted by me (3pts min.). @ -As above X-rays interpreted by me (1pt min.). @ -Chest x-ray shows no obvious acute cardiopulmonary process. CT interpreted by me (1pt min.). @ -CT revealed no obvious acute pulmonary embolism or other acute cardiopulmonary process. CT thoracic spine reveals no obvious acute traumatic injury. U/S interpreted by me (1pt. min.). @ -None done What testing was considered but not performed or refused? (CT, X-rays, U/S, labs)? Why? @ -None What meds were considered but not given or refused? Why? @ -None Did you discuss the management of the patient with other professionals (professionals i.e. , PA, DRAINAGE ENGINEER, lab, RT, psych nurse, manager social responsibility, consultant [employer] and [employer]. vice president [employer] (ex ), teacher, inshore undersea warfare officer, telephonic nurse case manager)? Give summary @ - I spoke with the admitting provider, CECILIA LLANES who accepted the admission. Was smoking cessation discussed for >3mins.? @ -No Was critical care preformed (if so, how long)? @ -No Were there social determinants of health that impacted care today? How? (Homelessness, low income, unemployed, alcoholism, drug addiction, transportation, low edu. Level, literacy, decrease access to med. care, custodial, rehab)? @ -No Was there de-escalation of care discussed even if they declined (Discuss DNR or withdrawal of care, Hospice)? DNR status @ -No What co-morbidities impacted this encounter? (DM, HTN, Smoking, COPD, CAD, Cancer, CVA, ARF, Chemo, Hep., AIDS, mental health diagnosis, sleep apnea, morbid obesity)? @ -None Was patient admitted / discharged? Hospital course, mention meds given and route, prescriptions, significant lab abnormalities, going to OR and other pertinent info. @ -Based on patient's presentation and physical exam, presents with somewhat atypical pleuritic chest pain. Will obtain cardiopulmonary workup. She was in agreement this plan. Vital signs within acceptable limits. Patient started workup in triage and waiting room. 2 EKGs were obtained, with no significant dynamic changes between the 2. Patient does have some minimal ST segment depressions mostly in lead II with some T wave inversions in the inferior leads. Unchanged between the 2 EKGs today and somewhat seen on old EKG from 2017. Chest x-ray returned unremarkable. Labs returned remarkable for an undetectable troponin, elevated D-dimer 0.64, and negative viral swabs. When patient was placed in room, nitroglycerin did not improve the patient's pain at all. Patient administered IV fluids and morphine at this time in addition to the 324 mg of aspirin. Echo ordered. CT thoracic spine and CT PE ordered. CTs returned negative for any obvious acute process. Discussed with the patient she will be admitted to cardiac observation. Consult placed to cardiology. Echo ordered. I spoke with the admitting provider, CECILIA LLANES who accepted the admission. Undiagnosed new problem with uncertain prognosis? @ -No Drug Therapy requiring intensive monitoring for toxicity (Heparin, Nitro, Insulin, Cardizem)? @ -No Were any procedures done? @ -No Diagnosis/symptom? @ -Chest pain Acute, or Chronic, or Acute on Chronic? @ -Acute Uncomplicated (without systemic symptoms) or Complicated (systemic symptoms)? @ -Complicated Side effects of treatment? @ -No Exacerbation, Progression, or Severe Exacerbation? @ -No Poses a threat to life or bodily function? How? (Chest pain, [place], [place], pneumonia, PE, COPD, DKA, ARF, appy, cholecystitis, CVA, Diverticulitis, Homicidal, Suicidal, threat to staff... and all critical care pts) @ -Potentially, yes (Colin Robertson) - Lab Data Lab Results 04/28/25 04/28/25 04/28/25 Range/Units 19:32 21:03 21:03 WBC 7.10 (4.50-10.00) 10*3/uL RBC 4.74 (4.10-5.20) 10*6/uL Hgb 15.1 H (12.0-15.0) g/dL Hct 43.0 (37.2-46.3) % MCV 90.7 (80.0-97.0) fL MCH 31.9 (27.0-32.0) pg MCHC 35.1 (32.0-37.0) g/dL Plt Count 214 (140-440) 10*3/uL MPV 10.5 (9.5-12.2) fL Immature Gran % (Auto) 0.1 % Neutrophils % 47.2 % Lymphocytes % 44.1 % Monocytes % 5.8 % Eosinophils % 2.1 % Basophils % 0.7 % Immature Gran # 0.01 (0.00-0.04) 10*3/uL Neutrophils # 3.35 (1.80-7.70) 10*3/uL Lymphocytes # 3.13 (0.90-5.00) 10*3/uL Monocytes # 0.41 (0.20-1.00) 10*3/uL Eosinophils # 0.15 (0.04-0.35) 10*3/uL Basophils # 0.05 (0.00-0.10) 10*3/uL PT 10.5 (10.0-12.5) sec INR 0.9 (<1.2) APTT 24.4 (22.0-30.0) sec D-Dimer 0.64 H (<0.60) mg/L FEU Sodium (137-145) mmol/L Potassium (3.5-5.1) mmol/L Chloride (98-107) mmol/L Carbon Dioxide (22-30) mmol/L Anion Gap mmol/L BUN (7-17) mg/dL Creatinine (0.52-1.04) mg/dL Est GFR (CKD-EPI)AfAm (>60 ml/min/1.73 sqM) Est GFR (CKD-EPI)NonAf (>60 ml/min/1.73 sqM) Glucose (74-99) mg/dL Calcium (8.4-10.2) mg/dL Magnesium (1.6-2.3) mg/dL Total Bilirubin (0.2-1.3) mg/dL AST (14-36) U/L ALT (4-34) U/L Alkaline Phosphatase (38-126) U/L Troponin I (0.000-0.034) ng/mL Total Protein (6.3-8.2) g/dL Albumin (3.5-5.0) g/dL Lipase (23-300) U/L Influenza Type A (PCR) Not Detected (Not Detectd) Influenza Type B (PCR) Not Detected (Not Detectd) RSV (PCR) Not Detected (Not Detectd) SARS-CoV-2 (PCR) Not Detected (Not Detectd) 04/28/25 04/28/25 04/29/25 Range/Units 21:03 21:03 03:13 WBC (4.50-10.00) 10*3/uL RBC (4.10-5.20) 10*6/uL Hgb (12.0-15.0) g/dL Hct (37.2-46.3) % MCV (80.0-97.0) fL MCH (27.0-32.0) pg MCHC (32.0-37.0) g/dL Plt Count (140-440) 10*3/uL MPV (9.5-12.2) fL Immature Gran % (Auto) % Neutrophils % % Lymphocytes % % Monocytes % % Eosinophils % % Basophils % % Immature Gran # (0.00-0.04) 10*3/uL Neutrophils # (1.80-7.70) 10*3/uL Lymphocytes # (0.90-5.00) 10*3/uL Monocytes # (0.20-1.00) 10*3/uL Eosinophils # (0.04-0.35) 10*3/uL Basophils # (0.00-0.10) 10*3/uL PT (10.0-12.5) sec INR (<1.2) APTT (22.0-30.0) sec D-Dimer (<0.60) mg/L FEU Sodium 144 (137-145) mmol/L Potassium 4.4 (3.5-5.1) mmol/L Chloride 107 (98-107) mmol/L Carbon Dioxide 24 (22-30) mmol/L Anion Gap 13 mmol/L BUN 18 H (7-17) mg/dL Creatinine 0.79 (0.52-1.04) mg/dL Est GFR (CKD-EPI)AfAm >90 (>60 ml/min/1.73 sqM) Est GFR (CKD-EPI)NonAf 84 (>60 ml/min/1.73 sqM) Glucose 89 (74-99) mg/dL Calcium 10.6 H (8.4-10.2) mg/dL Magnesium 1.9 (1.6-2.3) mg/dL Total Bilirubin 1.0 (0.2-1.3) mg/dL AST 27 (14-36) U/L ALT 13 (4-34) U/L Alkaline Phosphatase 76 (38-126) U/L Troponin I <0.012 <0.012 (0.000-0.034) ng/mL Total Protein 8.6 H (6.3-8.2) g/dL Albumin 5.2 H (3.5-5.0) g/dL Lipase 120 (23-300) U/L Influenza Type A (PCR) (Not Detectd) Influenza Type B (PCR) (Not Detectd) RSV (PCR) (Not Detectd) SARS-CoV-2 (PCR) (Not Detectd) - EKG Data EKG Comments: 12-lead Electrocardiogram Interpretation Note EKG was reviewed and interpreted by myself. 12-lead ECG performed at 1845 is interpreted by me as revealing normal sinus rhythm at a rate of 88 beats per minute. [place] is normal. Mild ST segment depression in lead II with T wave inversions in leads II, 3, aVF. R wave progression across the precordium was satisfactory. Possible ischemic changes considering the T wave inversions. 12-lead Electrocardiogram Interpretation Note EKG was reviewed and interpreted by myself. 12-lead ECG performed at 1910 is in terpreted by me as revealing normal sinus rhythm at a rate of 87 beats per minute. [place] is normal. [place] interval is 137 ms, QRS duration 75 ms, QTc is 395 ms.. Redemonstration of the ST segment T wave inversions in the inferior leads. No acute dynamic changes.. R wave progression across the precordium was satisfactory.. . (Colin Robertson) Disposition <Valentina Carrillo - Last Filed: 04/28/25 19:01> Time of Disposition: 00:01 <Colin Robertson - Last Filed: 04/30/25 00:38> Clinical Impression: Chest pain Disposition: ADMITTED IP TO THIS HOSP Condition: Stable
[2025-04-28 19:41] LABS: Basophils # (A) 0.05 10*3/uL (0.00-0.10); Basophils % (A) 0.7 %; Eosinophils # (A) 0.15 10*3/uL (0.04-0.35); Eosinophils % (A) 2.1 %; HCT 43.0 % (37.2-46.3); HGB 15.1 g/dL (12.0-15.0); Lymphocytes # (A) 3.13 10*3/uL (0.90-5.00); Lymphocytes % (A) 44.1 %; MCH 31.9 pg (27.0-32.0); MCHC 35.1 g/dL (32.0-37.0); MCV 90.7 fL (80.0-97.0); Monocytes # (A) 0.41 10*3/uL (0.20-1.00); Monocytes % (A) 5.8 %; Neutrophils # (A) 3.35 10*3/uL (1.80-7.70); Neutrophils % (A) 47.2 %; Platelet Count 214 10*3/uL (140-440); RBC 4.74 10*6/uL (4.10-5.20); RDW 12.2 % (11.5-14.5); WBC 7.10 10*3/uL (4.50-10.00)
--- NOTE | 2025-04-28 19:42 | XR ---
EXAMINATION TYPE: XR chest 2V DATE OF EXAM: 04/28/2025 7:37 PM COMPARISON: Chest radiographs from 12/25/2017 TECHNIQUE: XR chest 2V Frontal and lateral views of the chest. CLINICAL INDICATION:Female, 60 years old with history of Chest Pain; FINDINGS: Lungs/Pleura: There is no evidence of pleural effusion, focal consolidation, or pneumothorax. Pulmonary vascularity: Unremarkable. Heart/mediastinum: Cardiomediastinal silhouette is unremarkable. Musculoskeletal: No acute osseous pathology. Partial visualization of lumbar fusion hardware. IMPRESSION: No acute cardiopulmonary disease/process. [facility], , 04/28/2025 7:40 PM
[2025-04-28 21:51] LABS: INR 0.9 (<1.2); Partial Thromboplastin Time 24.4 sec (22.0-30.0); Prothrombin Time 10.5 sec (10.0-12.5)
[2025-04-28 21:54] LABS: ALT 13 U/L (4-34); AST 27 U/L (14-36); African American GFR (CKD) >90 (>60 ml/min/1.73 sqM); Albumin 5.2 g/dL (3.5-5.0); Alkaline Phosphatase 76 U/L (38-126); Anion Gap 13 mmol/L; Blood Urea Nitrogen 18 mg/dL (7-17); Calcium 10.6 mg/dL (8.4-10.2); Carbon Dioxide 24 mmol/L (22-30); Chloride 107 mmol/L (98-107); Glucose 89 mg/dL (74-99); Lipase 120 U/L (23-300); Magnesium 1.9 mg/dL (1.6-2.3); Non-African American GFR(CKD) 84 (>60 ml/min/1.73 sqM); Potassium 4.4 mmol/L (3.5-5.1); Sodium 144 mmol/L (137-145); Total Protein 8.6 g/dL (6.3-8.2)
[2025-04-28 22:08] LABS: RSV Not Detected (Not Detectd)
[2025-04-28] MEDS: ASPIRIN 81 MG PO STA (22:17)
[2025-04-28] MEDS: NITROGLYCERIN SL TABS 0.4 MG TAB SUBLINGUAL STA (22:29)
[2025-04-28] MEDS: SODIUM CHLORIDE 0.9% 1,000 ML IV ONE (23:28)
[2025-04-28] MEDS: SODIUM CHLORIDE 0.9% 1,000 ML IV SCH (23:28)
[2025-04-28] MEDS: MORPHINE SULFATE 2 MG/ML SYRINGE IVP STA (23:29)
--- NOTE | 2025-04-28 23:47 | CT ---
EXAM: CT Thoracic Spine Without Intravenous Contrast CLINICAL HISTORY: ITS.REASON CT Reason: back pain, history of spine surgery TECHNIQUE: Axial computed tomography images of the thoracic spine without intravenous contrast. CTDI is 19.2 mGy and DLP is 933.6 mGy-cm. This CT exam was performed using one or more of the following dose reduction techniques: automated exposure control, adjustment of the mA and/or kV according to patient size, and/or use of iterative reconstruction technique. COMPARISON: No relevant prior studies available. FINDINGS: The vertebral body heights are maintained. The thoracic kyphosis is preserved. There is no spondylolisthesis. The posterior elements are maintained, without evidence of acute fracture. The pedicles are intact. Multilevel thoracic spondylosis and degenerative disc disease. IMPRESSION: No acute fracture or subluxation of the thoracic spine.
[2025-04-29] MEDS ORDERED: MORPHINE SULFATE 4 MG/ML SYRINGE IV PRN (00:01)
[2025-04-29] MEDS ORDERED: NALOXONE 0.4 MG/ML 1 ML VIAL IV PRN (00:01)
--- NOTE | 2025-04-29 00:26 | CT ---
EXAM: CT Angiography Chest With Intravenous Contrast CLINICAL HISTORY: ITS.REASON CT Reason: right sided cp, eval for PE TECHNIQUE: Axial computed tomographic angiography images of the chest with intravenous contrast. CTDI is 18.2 mGy and DLP is 330.6 mGy-cm. This CT exam was performed using one or more of the following dose reduction techniques: automated exposure control, adjustment of the mA and/or kV according to patient size, and/or use of iterative reconstruction technique. MIP reconstructed images were created and reviewed. COMPARISON: No relevant prior studies available. FINDINGS: LUNGS: No focal consolidation, pleural effusion, or pneumothorax. HEART: Within normal limits. VASCULATURE: No acute pulmonary embolism. THYROID: Within normal limits. MEDIASTINUM + LYMPH NODES: Within normal limits. SUPERIOR ABDOMEN: Within normal limits. MUSCULOSKELETAL: Within normal limits. IMPRESSION: No acute pulmonary embolism.
[2025-04-29 06:46] VITALS: RESP 18
[2025-04-29] MEDS ORDERED: DOBUTamine DRIP for NUC MED 500 MG in DEXTROSE/WATER 1 250ML.BAG IV PRN (08:06)
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
[2025-04-29] MEDS: ONDANSETRON 4 MG/2 ML VIAL IVP PRN (10:51)
[2025-04-29] MEDS: ACETAMINOPHEN TAB 325 MG TAB PO PRN (10:51)
--- NOTE | 2025-04-29 11:57 | CA ---
Transthoracic Echo Report Name: Alyse Mata Age: 60 Gender: F : 1965 Exam Date: 04/29/2025 09:53 Exam Location: [place] [facility] Ht (in): 62 Wt (lb): 160 Ordering Physician: Colin Robertson MD Attending/Referring Phys: Collar Turner Operator Neelima Tirado RDCS Procedure CPT: Indications: Chest Pain Cardiac Hx: Technical Quality: Good Contrast 1: Total Dose (mL): Contrast 2: Total Dose (mL): MEASUREMENTS (Male / Female) Normal Values 2D ECHO LV Diastolic Diameter PLAX 4.4 cm 4.2 - 5.9 / 3.9 - 5.3 cm LV Systolic Diameter PLAX 2.8 cm IVS Diastolic Thickness 1.2 cm 0.6 - 1.0 / 0.6 - 0.9 cm LVPW Diastolic Thickness 1.2 cm 0.6 - 1.0 / 0.6 - 0.9 cm LV Relative Wall Thickness 0.5 RV Internal Dim ED PLAX 3.0 cm LA Systolic Diameter LX 3.4 cm 3.0 - 4.0 / 2.7 - 3.8 cm LV Diastolic Volume MOD 4C 77.6 cm??? LV Systolic Volume MOD 4C 31.4 cm??? LV Ejection Fraction MOD 4C 59.5 % LV Cardiac Index MOD 4C 2069.0 cm???/min???m??? LV Diastolic Length 4C 8.8 cm LV Systolic Length 4C 7.1 cm LV Diastolic Volume MOD 2C 71.5 cm??? LV Systolic Volume MOD 2C 36.1 cm??? LV Ejection Fraction MOD 2C 49.5 % LV Cardiac Index MOD 2C 1588.0 cm???/min???m??? LV Diastolic Length 2C 7.8 cm LV Systolic Length 2C 6.3 cm LA Volume 39.7 cm??? 18 - 58 / 22 - 52 cm??? LA Volume Index 22.0 cm???/m??? 16 - 28 cm???/m??? M-MODE Aortic Root Diameter MM 3.0 cm AV Cusp Separation MM 2.2 cm DOPPLER AV Peak Velocity 158.6 cm/s AV Peak Gradient 10.1 mmHg AV Mean Velocity 87.1 cm/s AV Mean Gradient 3.9 mmHg AV Velocity Time Integral 28.9 cm MV Area PHT 3.0 cm??? Mitral E Point Velocity 81.5 cm/s Mitral A Point Velocity 90.7 cm/s Mitral E to A Ratio 0.9 MV Deceleration Time 249.4 ms TR Peak Velocity 256.1 cm/s TR Peak Gradient 26.2 mmHg Right Ventricular Systolic Press 31.2 mmHg FINDINGS Left Ventricle Left ventricular ejection fraction is estimated at 60-65 %. Left ventricular cavity size normal. Mildly increased septal wall thickness. Mildly increased posterior wall thickness. Right Ventricle Normal right ventricular size. Right ventricular systolic pressure within normal limits. Right Atrium Normal right atrial size. No right atrial thrombus or mass seen. Left Atrium Normal left atrial size. No left atrial thrombus or mass present. Mitral Valve Structurally normal mitral valve. No mitral stenosis, regurgitation or prolapse. Aortic Valve Trileaflet aortic valve. No aortic valve stenosis or regurgitation. Tricuspid Valve Structurally normal tricuspid valve. Mild tricuspid regurgitation. Pulmonic Valve Structurally normal pulmonic valve. No pulmonic regurgitation. Pericardium No pericardial effusion. Aorta Normal size aortic root and proximal ascending aorta. CONCLUSIONS Normal LV function Previewed by: Dr. Bobo Ospina MD (Electronically Signed) Final Date: 29 April 2025 11:56
--- NOTE | 2025-04-29 11:59 | CA ---
Dobutamine Stress Echocardiogram Report Alyse Mata Age: 60 Gender: F : 1965 Exam Date: 04/29/2025 09:32 Exam Location: [place] [facility] Ordering Physician: Ananya Flores Referring Physician: [id number] Villeda Tractor Expert: FRANK Technologist: ERMA Ht (in): 62 Wt (lb): 160 Procedure CPT: Indication: CP ICD-9 Codes: Rhythm: Patient History: CP, FAMILY HX. Cardiac Medications: SEE CHART,,,,, Medications in past 24 hours: Contrast: Total Dose (mL): Stress Results Protocol: Dobutamine Peak Dose (???g/kg/min): 30 Duration (min:sec): Atropine:(mg) None Target HR: 138 Double Product: [id number] Resting HR: 73 Resting BP: 143 / 88 Peak HR: 154 Peak BP: 155 / 70 Max Predicted HR: 162 95 % Max Predicted HR Stress Summary: BP Response: Reason for Termination: Target HR Cardiac Symptoms: NO SYMPTOMS ECG Analysis Resting EKG: Normal sinus rhythm normal axis with nonspecific ST-T wave changes Stress EKG: Patient was given intravenous dobutamine as per protocol achieving 85% of predicted maximal heart rate there was worsening of the baseline ST-T wave changes Arrhythmia: Echo Analysis Base Echo Analysis: Normal left ventricular size wall motion and systolic function Low Echo Anaylsis: Normal Peak Echo Analysis: Normal hyperdynamic response Recovery Echo: Normal MEASUREMENTS (Male/Female) Normal Values CONCLUSIONS Inconclusive EKG part of the stress test due to baseline EKG abnormalities Negative dobutamine stress echo Dr. Bobo Ospina MD (Electronically Signed) Final Date: 29 April 2025 11:58
[2025-04-29] MEDS: ASPIRIN 81 MG PO SCH (12:24)
[2025-04-29] MEDS: LOSARTAN 25 MG TAB PO SCH (12:24)
[2025-04-29 13:26] VITALS: BP 119/75; PULSE 72; TEMP 97.8
[2025-04-29 15:24] LABS: Cholesterol 237.00 mg/dL (0.00-200.00); HDL Cholesterol 55.40 mg/dL (40.00-60.00); LDL Cholesterol,Calculated 169.6 mg/dL (0.0-131.0); Triglycerides 60.20 mg/dL (0.00-149.00); VLDL Calculation 12.04 mg/dL (5.00-40.00)
[2025-04-29] MEDS ORDERED: ATORVASTATIN 40 MG TAB PO SCH (21:00)
--- NOTE | 2025-04-29 22:23 | HP ---
HISTORY AND PHYSICAL This is a combined history and physical and discharge summary. CHIEF COMPLAINT: Chest pain. HISTORY OF PRESENT ILLNESS: This is a 60-year-old woman with a past medical history of multiple problems including chronic cough, was admitted with anterior and right-sided chest pain. The pain was increasing with respiration. The patient underwent a dobutamine stress, which was negative. Cardiology cleared the patient for discharge. A 2D echo with Doppler was also done, shows normal findings. CT angio of the chest is also normal. There is no history of fever, rigors, or chills. PAST MEDICAL HISTORY: Reviewed, include chronic cough, GERD, hypertension, and hyperlipidemia. Rest of the history and chart is also reviewed. HOME MEDICATIONS: Tylenol. Doses and rest of medications reviewed. ALLERGIES: None. FAMILY HISTORY: History of DJD and hypertension. SOCIAL HISTORY: History of THC. REVIEW OF SYSTEMS: A 14-point review of systems negative except as mentioned earlier. PHYSICAL EXAMINATION: VITAL SIGNS: Pulse is 72, blood pressure 119/74, and respirations 18. HEENT: Conjunctivae normal. NECK: No JVD. CARDIOVASCULAR: S1, S2. RESPIRATIONS: Breath sounds diminished at the bases. ABDOMEN: Soft. NERVOUS SYSTEM: Nonfocal. LABORATORY DATA: Reviewed. ASSESSMENT: 1. Chest pain, possible nonspecific chest pain with negative stress test. 2. Chronic cough, possibly secondary to gastroesophageal reflux disease. 3. Hyperlipidemia. 4. Hypertension. 5. History of degenerative joint disease. RECOMMENDATIONS: A 60-year-old woman presented with multiple complex medical issues. We will monitor the patient closely. I would recommend to continue current management and symptomatic treatment. I would also recommend a course of Protonix b.i.d. and head of the bed elevated to 45 degrees. Also, recommend close followup with Pulmonary for chronic cough and follow with Cardiology. Prognosis guarded. For further recommendations, see orders for discharge medications. Recommend aspirin 81 mg, Cozaar 25, Lipitor 40. MMODL / IJN: [id number] /
== END 2025-04-29 16:30 | disposition home or self-care (01) ==
LOC: EC 18:14 → 1SOBS 04-29 04:18
PROVIDERS: ADMIT Hospitalist; ATTEND Hospitalist
DX: R07.89 Other chest pain (principal); R05.3 Chronic cough; R07.81 Pleurodynia; I10 Essential (primary) hypertension; E78.5 Hyperlipidemia, unspecified; M54.2 Cervicalgia; R51.9 Headache, unspecified; G89.29 Other chronic pain; M54.6 Pain in thoracic spine; M54.50 Low back pain, unspecified; M19.90 Unspecified osteoarthritis, unspecified site; Z79.82 Long term (current) use of aspirin; Z79.1 Long term (current) use of non-steroidal anti-inflammatories (NSAID); Z79.899 Other long term (current) drug therapy; Z87.891 Personal history of nicotine dependence; Z11.52 Encounter for screening for COVID-19; Z11.59 Encounter for screening for other viral diseases
CPT/HCPCS: 96375; 96374; 99285; 36415 ×2; 93005; 93306; 93351; 85379; 80061; 80053; 83690; 83735; 84484 ×2; 85025; 85610; 85730; 83036; 87636; 71046; 72128; 71275; G0378; J2405; J2270; Q9967